=== PATIENT | female | born 1960 | race Caucasian/White ===

== ENCOUNTER 2017-05-08 11:32 | Inpatient (IN) | payer OTHER, MEDICARE ==
[~2017-05-08] VITALS: Ht 165.1 cm; Wt 126.1 kg
[~2017-05-08 11:32] MED LIST: ABILIFY 2MG2 MG PO; ALBUTEROL 3 ML3 ML INH; ASPIR 8181 MG PO; DIOVAN HCT 25 M1 TAB PO; ENBREL50 MG/ML; ESCITALOPRAM20 MG PO; FUROSEMIDE20 MG PO; HYDROXYCHLOROQ200 M1 PO; LEVAQUIN 500MG500 MG PO; LEVAQUIN500 M1 PO; MEDROL4 M2 PO; MULTI VITAMINS1 TAB PO; NASONEX0.05 MG/Ac NAS; PANTOPRAZOLE SO20 MG PO; PROMETHAZINE-C118 ML PO; PROVENTIL0.09 MG/A1 PO; ROPINIROLE HYDRO1 MG PO; SPIRIVA 18 MCG18 MCG INH; SYMBICORT 160/41 PUF INH
--- NOTE | 2017-05-08 12:51 | RADIOLOGY REPORT ---
EXAMINATION: XR CHEST CLINICAL INFORMATION: Shortness of breath. COMPARISON: Chest x-ray dated 04/26/2017. TECHNIQUE: Frontal and lateral views of the chest were obtained. FINDINGS: The lungs are clear bilaterally. There is no evidence of pleural effusion or pneumothorax. The central pulmonary vasculature is within normal limits. The cardiomediastinal silhouette is not enlarged. The overlying soft tissues are unremarkable. Small anterior osteophytes and endplate changes are present at multiple levels in the thoracic spine. IMPRESSION: No acute cardiopulmonary findings.
--- NOTE | 2017-05-08 13:08 | ED DYSPNEA/ASTHMA COMPLAINT ---
See Addendum History of Present Illness General Chief Complaint: General Adult Stated Complaint: SENT BY KIERA FOR EVAL, POOR LUNG SOUNDS Source: patient, old records Exam Limitations: no limitations Vital Signs & Intake/Output Vital Signs & Intake/Output Vital Signs Date Time Temp Pulse Resp B/P B/P Pulse O2 O2 Flow FiO2 Mean Ox Delivery Rate 05/10 1630 91 Nasal 3.0L Cannula 05/10 1445 98.2 98 20 120/70 95 05/10 1000 79 20 150/88 05/10 0815 93 Nasal 2.0L Cannula 05/10 0800 95 Nasal 2.0L Cannula 05/10 0650 96.8 79 20 150/88 95 Nasal 2.0L Cannula 05/10 0007 75 95 05/10 0000 95 Nasal 2.0L Cannula 05/09 2240 73 94 05/09 2208 98.1 93 20 188/84 95 Nasal Cannula 05/09 2048 94 Nasal 2.0L Cannula ED Intake and Output 05/10 0000 05/09 1200 Intake Total 510 240 Output Total Balance 510 240 Intake, Oral 510 240 Allergies Coded Allergies: doxycycline (Intermediate, HIVES/SOB 04/27/17) morphine (Intermediate, RASH, HIVES 04/27/17) amoxicillin (HIVES, WHEEZING 04/27/17) acetaminophen (From VICODIN) (Intermediate, NAUSEA 04/27/17) hydrocodone (From VICODIN) (Intermediate, NAUSEA 04/27/17) Triage Note: PT SENT TO ED BY DR QURESHI FOR "POOR LUNG SOUNDS". PT IS O2 DEPENDANT AT 2L NC, SATS 96%. PT IN NO OBVIOUS RESP DISTRESS. PT WAS AT DR QURESHI'S FOR F/U APPT FROM LAST VISIT TO ED ON 04/26. Triage Nurses Notes Reviewed? yes Onset: Gradual Duration: week(s): (1-2), constant, continues in ED, getting worse Timing: recent history Severity: mild, moderate Activities at Onset: activity Prior Episodes/Possible Cause: frequent episodes Modifying Factors: Improves With: rest. Worsens With: movement. Associated Symptoms: cough, chest pain, lightheadedness, wheezing, weakness LMP (ages 10-50): unknown : No Patient currently breastfeeds: No HPI: 56-year-old female past medical history of COPD and sleep apnea presents for evaluation of shortness of breath cough and wheezing. Patient states that her symptoms were going on for the past 1-2 weeks. She was seen in the emergency department when symptoms first started. She was given a prescription for prednisone and Levaquin which she has been taking. She was discharged home with instructions to follow-up with her rigging slinger which she did today. While in the office patient was found to have increased oxygen use and significant wheezing and rhonchi she was referred to the emergency department by Dr. Qureshi. Patient reports a cough productive of yellow sputum that is worse at night causing difficulty sleeping. She also reports associated shortness of breath. She states that her chest hurts when she coughs. No hemoptysis lower extremity edema. She does report intermittent fevers. No nausea vomiting diarrhea sweats chills. (Dustin CORRALES,Omid) Reconcile Medications Albuterol Sulfate 2.5 MG/3 ML (0.083 %) VIAL.NEB 1 Vial INH/NYA Q4P PRN SOB ( Reported) Albuterol Sulfate (Proair Hfa) 90 MCG HFA.AER.AD 2 PUF INH Q4-6 PRN PRN SOB ( Reported) Aspirin (Aspirin*) 81 MG TAB.CHEW 1 TAB PO DAILY HEART HEALTH (Reported) Budesonide/Formoterol Fumarate (Symbicort 160-4.5 Mcg Inhaler) 160 MCG-4.5 MCG/ ACTUATION HFA.AER.AD ASTHMA (Reported) Cyclosporine (Restasis) 0.05 % DROPERETTE 1 GTT OPH BID DRY EYES (Reported) Escitalopram Oxalate 20 MG TABLET 1 TAB PO DAILY DEPRESSION (Reported) Etanercept (Enbrel) 50 MG/ML (0.98 ML) SYRINGE 50 SC QW . (Reported) Furosemide 20 MG TABLET 1 TAB PO DAILY FLUID (Reported) Montelukast Sodium 10 MG TABLET 1 TAB PO DAILY ALLERGIES (Reported) Multivitamin (Daily Multiple Vitamin) 1 EACH TABLET 1 TAB PO DAILY SUPPLEMENT (Reported) Pantoprazole Sodium 40 MG TABLET.DR 1 TAB PO DAILY ANTACID (Reported) Tiotropium [place] (Spiriva Respimat) 2.5 MCG/ACTUATION MIST.INHAL 1 CAP INH DAILY ASTHMA (Reported) Valsartan/Hydrochlorothiazide (Diovan Hct 80-12.5 MG Tablet) 80 MG-12.5 MG TABLET 1 TAB PO DAILY HTN (Reported) (John HAYNESDara) Past History Travel History Traveled to [place] past 21 day No Medical History Any Pertinent Medical History? see below for history Neurological: NONE EENT: allergies, DRY EYES Cardiovascular: hypertension Respiratory: emphysema, SLEEP APNEA 02 DEPENDANT Gastrointestinal: GERD Hepatic: NONE Renal: NONE Musculoskeletal: rheumatoid arthritis Psychiatric: NONE Endocrine: NONE History of MRSA: No History of VRE: No History of CDIFF: No Surgical History Surgical History: non-contributory Psychosocial History Who do you live with Spouse Services at Home None What is your primary language Bangladeshi Tobacco Use: Quit >30 days ago ETOH Use: denies use Illicit Drug Use: denies illicit drug use Family History Family History, If Any: grandmother (Angina). MOTHER (Aortic Valve replacement). FATHER (Hypertension). BROTHER (CHF). Hx Contributory? No (Omid Keller) Review of Systems Review of Systems Constitutional: Reports: no symptoms. EENTM: Reports: no symptoms. Respiratory: Reports: see HPI, cough, short of breath, sputum production, wheezing. Cardiovascular: Reports: see HPI, chest pain. GI: Reports: no symptoms. Genitourinary: Reports: no symptoms. Musculoskeletal: Reports: no symptoms. Skin: Reports: no symptoms. Neurological/Psychological: Reports: no symptoms. Hematologic/Endocrine: Reports: no symptoms. Immunologic/Allergic: Reports: no symptoms. All Other Systems: Reviewed and Negative (Omid Keller) Physical Exam Physical Exam General Appearance: well developed/nourished, no apparent distress, alert, awake , obese Head: atraumatic, normal appearance Eyes: Bilateral: normal appearance, PERRL, EOMI. Ears, Nose, Throat: normal pharynx, normal ENT inspection, hearing grossly normal, nasal congestion, moist mucus membranes Neck: normal inspection, supple, full range of motion, no jvd Respiratory: chest non-tender, no respiratory distress, rhonchi (diffuse ), wheezing (diffuse ) Cardiovascular: normal peripheral pulses, tachycardia Peripheral Pulses: 2+ radial (R), 2+ radial (L) Gastrointestinal: normal bowel sounds, soft, non-tender, no organomegaly Extremities: normal inspection, normal range of motion, no edema Neurologic/Psych: no motor/sensory deficits, awake, alert, oriented x 3, normal gait Skin: intact, normal color, warm/dry Lymphatic: no anterior cervical eva Core Measures ACS in differential dx? No CVA/TIA Diagnosis No Sepsis Present: No Sepsis Focused Exam Completed? No (Omid Keller) Progress Differential Diagnosis: asthma, AMI, bronchitis, CHF, COPD, musculoskeletal pain , pulmonary embolism, pneumonia, unstable angina Plan of Care: Orders Procedure Date/time Status PT Evaluate & Treat 05/10 UNK Active Anticipated Discharge 05/10 UNK Active NUTRITIONAL CONSULT 05/10 UNK Active OXYGEN SETUP CHG 05/09 UNK Complete AEROSOL CHG 05/09 UNK Complete OXYGEN 05/09 UNK Complete OXYGEN TRANSPORT 05/09 UNK Complete PHARMACY COMMUNICATION FORM 05/09 UNK Active MISSING MEDICATION FORM 05/09 UNK Active Current Medications Sig/Jarrell Start time Last Medication Dose Stop Time Status Admin Methylprednisolone 40 MG Q12 05/10 2200 AC (Solumedrol) Montelukast Sodium 10 MG DAILY 05/10 1000 AC 05/10 (Singulair) 0959 Hydrochlorothiazide 12.5 MG DAILY 05/09 2245 AC 05/10 (Hydrodiuril) 1000 Albuterol Sulfate 3 ML EVERY 4 HRS/AWAKE 05/09 1600 AC 05/10 (Proventil) 1628 Azithromycin 250 MG DAILY 05/09 1000 AC 05/10 (Zithromax) 0959 Enoxaparin Sodium 40 MG DAILY 05/09 1000 AC 05/10 (Lovenox) 0959 Furosemide 20 MG DAILY 05/09 1000 AC 05/10 (Lasix) 1000 Losartan Potassium 25 MG DAILY 05/09 1000 AC 05/10 (Cozaar) 1000 Albuterol Sulfate 3 ML Q4P PRN 05/08 1730 AC 05/09 (Proventil) 1553 Albuterol Sulfate 2 PUF Q4-6 PRN PRN 05/08 1730 AC (Ventolin) Budesonide/ 2 PUF DAILY 05/08 1723 AC 05/10 Formoterol Fumarate 1119 (Symbicort) Escitalopram Oxalate 20 MG DAILY 05/08 1722 AC 05/10 (Lexapro) 1000 Multivitamins 1 TAB DAILY 05/08 1722 AC 05/10 Therapeutic 0959 (Theragran-M Vitamins Tabs) Omeprazole 40 MG DAILY AC 05/08 1722 AC 05/10 (Prilosec) 0543 Tiotropium [place] 1 PUF DAILY 05/08 1722 AC 05/10 (Spiriva) 1120 Aspirin 81 MG DAILY 05/08 1721 AC 05/10 (Aspirin) 1000 Patient seen and evaluated. Patient is prescribed oxygen for use during exertion only. She reports that she has been needing to use her oxygen 24 7 for the past week or so. She was treated as an outpatient with oral antibiotics and steroids without any improvement. Her rigging slinger Dr. Qureshi referred her to the emergency department for possible admission. We'll check basic labs EKG chest x-ray and flu swab. Patient medicated with IV Solu-Medrol and DuoNeb. Chest x-ray is negative for pneumonia. All blood work is within normal limits including negative troponin and BNP and d-dimer. EKG is stable. Patient is requiring more oxygen than usual. She failed outpatient treatment with prednisone and Levaquin. Patient is prescribed oxygen for exertional use only. At rest patient desaturates to 91% on room air and becomes visibly short of breath. Patient will require IV steroids, DuoNeb's, pulmonology consult, IV antibiotics, oxygen management, medication adjustment and monitoring of vital signs. Case discussed with Dr. Lopez she agrees. Diagnostic Imaging: Viewed by Me: Radiology Read. Discussed w/RAD: Radiology Read. CXR Impression: PATIENT: KIRBY SHABAZZ PRESENT AGE: 56 PATIENT ACCOUNT NO: [id number] : 60 LOCATION: [facility] ORDERING PHYSICIAN: Basil CORRALES SERVICE DATE: 05/08/17 EXAM TYPE: RAD - XRY-CHEST XRAY, TWO VIEWS EXAMINATION: XR CHEST CLINICAL INFORMATION: Shortness of breath. COMPARISON: Chest x-ray dated 04/26/2017. TECHNIQUE: Frontal and lateral views of the chest were obtained. FINDINGS: The lungs are clear bilaterally. There is no evidence of pleural effusion or pneumothorax. The central pulmonary vasculature is within normal limits. The cardiomediastinal silhouette is not enlarged. The overlying soft tissues are unremarkable. Small anterior osteophytes and endplate changes are present at multiple levels in the thoracic spine. IMPRESSION: No acute cardiopulmonary findings. DICTATED BY: Bhavna Johnson MD DATE/TIME DICTATED:05/08/171246 HVAC SPECIALIST: MICKEY DATE/TIME TRANSCRIBED:05/08/171246 CONFIDENTIAL, DO NOT COPY WITHOUT APPROPRIATE AUTHORIZATION. Initial ED EKG: normal sinus rhythm, probable left atrial abn, consider lvh, probable inferior infarct old (Omid Keller) Departure Departure Disposition: STILL A PATIENT Condition: Stable Clinical Impression Primary Impression: COPD exacerbation Referrals: Marvin Welsh MD (PCP/Family) Departure Forms: Customer Survey General Discharge Information Admission Note Documentation of Exam: Documentation of any treatments & extenuating circumstances including Concerns Regarding Discharge (functional status, medication knowledge or non-compliance, living conditions, etc.) that warrant an admission rather than observation: [IV steroids, DuoNeb's, serial labs, pulmonology consult, oxygen setup, medication adjustment, monitoring of vital signs] (Omid Keller) Departure Time of Disposition: 1530 Admission Note Spoke With: Rosa HAYNES,Johnathan PA/SCIENTIFIC AIDE Co-Sign Statement Statement: ED Attending supervision documentation- [X] I saw and evaluated the patient. I have also reviewed all the pertinent lab results and diagnostic results. I agree with the findings and the plan of care as documented in the PA's/SCIENTIFIC AIDE's documentation. [X] I have reviewed the ED Record and agree with the PA's/SCIENTIFIC AIDE's documentation. [] Additions or exceptions (if any) to the PAs/SCIENTIFIC AIDE's note and plan are summarized below: [] (John HAYNES,Dara) Critical Care Note Critical Care Note Critical Care Time: non-applicable (Omid Keller)
[2017-05-08 13:15] LABS: ABSOLUTE BASOPHIL COUNT 0 /CUMM (0.0-0.2); ABSOLUTE EOSINOPHIL COUNT 0.2 /CUMM (0.0-0.7); ABSOLUTE GRANULOCYTE CT 11.7 /CUMM (1.4-6.5); ABSOLUTE LYMPH COUNT 1.9 /CUMM (1.2-3.4); ABSOLUTE MONOCYTE COUNT 1.3 /CUMM (0.10-0.60); BASOPHIL % 0.3 % (0.0-2.0); EOSINOPHIL % 1.6 % (0-5); GRANULOCYTE % 76.5 % (42.2-75.2); HEMATOCRIT 44.4 % (37-47); MEAN CORPUSCULAR HGB 28.8 PG (27.0-31.0); MEAN CORPUSCULAR VOLUME 87.2 FL (81.0-99.0); MEAN PLATELET VOLUME 8.5 FL (7.4-10.4); PLATELET COUNT 365 /CUMM (130-400); RBC DISTRIBUTION WIDTH 14.2 % (11.5-14.5); WHITE BLOOD CELL COUNT 15.3 /CUMM (4.8-10.8)
[2017-05-08 13:27] LABS: PT 11.2 SEC (9.4-12.5); PTT 30 SEC (25-37)
[2017-05-08] MEDS ORDERED: PROAIR HFA8.5 GM INH (15:27)
[2017-05-08] MEDS ORDERED: ALBUTEROL2.5 MG/3 M INH/SOL (15:27)
[2017-05-08] MEDS ORDERED: MONTELUKAST SOD10 M1 PO (15:28)
[2017-05-08] MEDS ORDERED: FUROSEMIDE20 M1 PO (15:28)
[2017-05-08] MEDS ORDERED: ASPIRIN81 M4 PO (15:29)
[2017-05-08] MEDS ORDERED: SYMBICORT 16010.2 GM INH (15:29)
[2017-05-08] MEDS ORDERED: ENBREL50 MG/1 ML SC (15:30)
[2017-05-08] MEDS ORDERED: ESCITALOPRAM OX20 MG PO (15:30)
[2017-05-08] MEDS ORDERED: RESTASIS1 EACH OPH (15:30)
[2017-05-08] MEDS ORDERED: SPIRIVA RESPIMAT4 GM INH (15:32)
[2017-05-08] MEDS ORDERED: PANTOPRAZOLE SO40 M1 PO (15:34)
[2017-05-08] MEDS ORDERED: DIOVAN HCT 1601 EAC1 PO (15:36)
[2017-05-08] MEDS ORDERED: DAILY MULTIPLE1 EACH PO (15:36)
--- NOTE | 2017-05-08 15:40 | History & Physical ---
Freida Bay 05/08/17 1540: General Information and HPI MD Statement: I have seen and personally examined OCTAVIOVenitaGISELLEKIRBY Hollis and documented this H&P. The patient is a 56 year old F who presented with a patient stated chief complaint of []. Source of Information: patient Exam Limitations: no limitations History of Present Illness: Ms. Castellano is a 56-year-old female past medical history of COPD on home O2, sleep apnea, and rheumatoid arthritis on weekly Enbrel injection presented to ER after being sent in by Dr. Lainez during outpatient office visit for evaluation of shortness of breath cough and wheezing. Patient stated that her symptoms of discomfort, shortness of breath, feverish feelings started on 04/23/2017, and she presented to ER on 04/26, and received a prescription for prednisone and Levaquin which she has been taking prior to this admission, however, without significant improvement of symptoms. She was scheduled to see Dr. Lainez today and was found to have increased oxygen needs and significant wheezing/rhonchi. Patient was then sent to ER. Of note, patient reported productive cough with yellowish sputum that was worse at night and causing difficulty sleeping, and admitted that she had recent sick contact from her who was coughing as well. She also reported ongoing SOB since start of her symptoms, and required all day home O2 for the past 2 weeks. Patient denied any hemoptysis, lower extremity edema, nausea, vomiting, diarrhea, night sweats, or chills. Allergies/Medications Allergies: Coded Allergies: doxycycline (Intermediate, HIVES/SOB 04/27/17) morphine (Intermediate, RASH, HIVES 04/27/17) amoxicillin (HIVES, WHEEZING 04/27/17) acetaminophen (From VICODIN) (Intermediate, NAUSEA 04/27/17) hydrocodone (From VICODIN) (Intermediate, NAUSEA 04/27/17) Home Med list Albuterol Sulfate 2.5 MG/3 ML (0.083 %) VIAL.NEB 1 Vial INH/NYA Q4P PRN SOB ( Reported) Albuterol Sulfate (Proair Hfa) 90 MCG HFA.AER.AD 2 PUF INH Q4-6 PRN PRN SOB ( Reported) Aspirin (Aspirin*) 81 MG TAB.CHEW 1 TAB PO DAILY HEART HEALTH (Reported) Budesonide/Formoterol Fumarate (Symbicort 160-4.5 Mcg Inhaler) 160 MCG-4.5 MCG/ ACTUATION HFA.AER.AD ASTHMA (Reported) Cyclosporine (Restasis) 0.05 % DROPERETTE 1 GTT OPH BID DRY EYES (Reported) Escitalopram Oxalate 20 MG TABLET 1 TAB PO DAILY DEPRESSION (Reported) Etanercept (Enbrel) 50 MG/ML (0.98 ML) SYRINGE 50 SC QW . (Reported) Furosemide 20 MG TABLET 1 TAB PO DAILY FLUID (Reported) Montelukast Sodium 10 MG TABLET 1 TAB PO DAILY ALLERGIES (Reported) Multivitamin (Daily Multiple Vitamin) 1 EACH TABLET 1 TAB PO DAILY SUPPLEMENT (Reported) Pantoprazole Sodium 40 MG TABLET.DR 1 TAB PO DAILY ANTACID (Reported) Tiotropium [place] (Spiriva Respimat) 2.5 MCG/ACTUATION MIST.INHAL 1 CAP INH DAILY ASTHMA (Reported) Valsartan/Hydrochlorothiazide (Diovan Hct 80-12.5 MG Tablet) 80 MG-12.5 MG TABLET 1 TAB PO DAILY HTN (Reported) Past History Travel History Traveled to [place] past 21 day No Medical History Neurological: NONE EENT: allergies, DRY EYES Cardiovascular: hypertension Respiratory: emphysema, SLEEP APNEA 02 DEPENDANT Gastrointestinal: GERD Hepatic: NONE Renal: NONE Musculoskeletal: rheumatoid arthritis Psychiatric: NONE Endocrine: NONE History of MRSA: No History of VRE: No History of CDIFF: No Surgical History Surgical History: non-contributory, cholecystectomy Past Family/Social History Family History Relations & Conditions if any grandmother (Angina). MOTHER (Aortic Valve replacement). FATHER (Hypertension). BROTHER (CHF). Psychosocial History Services at Home: None Smoking Status: Never Smoked ETOH Use: denies use Illicit Drug Use: denies illicit drug use Review of Systems Review of Systems Constitutional: Reports: see HPI. Exam & Diagnostic Data Last 24 Hrs of Vital Signs/I&O Vital Signs Date Time Temp Pulse Resp B/P B/P Pulse O2 O2 Flow FiO2 Mean Ox Delivery Rate 05/08 1643 89 19 111/72 98 Room Air 05/08 1433 98.4 95 20 108/58 97 Nasal 2.0L Cannula 05/08 1424 97 Nasal 2.0L Cannula 05/08 1336 96 Nasal 2.0L Cannula 05/08 1148 96.8 110 20 113/79 96 Nasal 2.0L Cannula Intake & Output 05/08 1600 05/08 0800 05/08 0000 Intake Total 0 Output Total Balance 0 Intake, Oral 0 Patient 126.099 kg Weight Weight Reported by Patient Measurement Method Physical Exam General Appearance Alert, Oriented X3, Cooperative, No Acute Distress Skin No Breakdown, No Significant Lesion Skin Temp/Moisture Exam: Warm/Dry Sepsis Skin Exam (color): Normal for Ethnicity HEENT Atraumatic, PERRLA, Mucous Membr. moist/pink Neck Supple, No JVD Cardiovascular Regular Rate Lungs Normal Air Movement, Bilateral rhonchi Abdomen Normal Bowel Sounds, Soft, No Tenderness Neurological Normal Speech, Strength at 5/5 X4 Ext Extremities No Edema, Normal Pulses, No Tenderness/Swelling Last 24 Hrs of Labs/Ivan: Laboratory Tests 05/08/17 1257: Anion Gap 11, Estimated GFR > 60, BUN/Creatinine Ratio 12.2, Glucose 123 H, Calcium 9.5, Total Bilirubin 0.8, AST 144 H, ALT 142 H, Alkaline Phosphatase 129 H, Troponin I < 0.01, Jke-B-Bbcrftzeehr Pept 19.5, Total Protein 7.1, Albumin 4.0, Globulin 3.1, Albumin/Globulin Ratio 1.3, PT 11.2, INR 1.07, APTT 30, D-Dimer High Sensitivty < 200, CBC w Diff NO MAN DIFF REQ, RBC 5.10, MCV 87.2, MCH 28.8, MCHC 33.0, RDW 14.2, MPV 8.5, Gran % 76.5 H, Lymphocytes % 12.8 L, Monocytes % 8.8, Eosinophils % 1.6, Basophils % 0.3, Absolute Granulocytes 11.7 H, Absolute Lymphocytes 1.9, Absolute Monocytes 1.3 H, Absolute Eosinophils 0.2, Absolute Basophils 0, Hepatitis A IgM Ab Pending, Hep Bs Antigen Pending, Hep B Core IgM Ab Conf Pending, Hepatitis C Antibody Pending Microbiology 05/08 1258 BLOOD: Blood Culture - RECD 05/08 1257 BLOOD: Blood Culture - RECD 05/08 1208 NASOPHARYN: Influenza Virus A & B Rapid Smear - COMP Diagnostic Data EKG Results Normal Sinus Rhythm without ST-T abnormalities Assessment/Plan Assessment: Ms. Castellano is a 56-year-old female past medical history of COPD on home O2, sleep apnea, and rheumatoid arthritis on weekly Enbrel injection presented to ER after being sent in by Dr. Lainez during outpatient office visit for evaluation of shortness of breath cough and wheezing. Patient stated that her symptoms of discomfort, shortness of breath, feverish feelings started on 04/23/2017, and she presented to ER on 04/26, and received a prescription for prednisone and Levaquin which she has been taking prior to this admission, however, without significant improvement of symptoms. She was scheduled to see Dr. Lainez today and was found to have increased oxygen needs and significant wheezing/rhonchi. Patient was then sent to ER. Of note, patient reported productive cough with yellowish sputum that was worse at night and causing difficulty sleeping, and admitted that she had recent sick contact from her who was coughing as well. She also reported ongoing SOB since start of her symptoms, and required all day home O2 for the past 2 weeks. Patient denied any hemoptysis, lower extremity edema, nausea, vomiting, diarrhea, night sweats, or chills. Upon admission, Afebrile (recent use of steroids) on 2LNC satting 97%. WBC 15.3 with mild left shift likely 2/2 recent steroid use. AST/ALT/ALKP 144/142/129. No acute findings on CXR. Patient's current clinical picture resembled COPD exacerbation failing outpatient treatment. Patient's afebrile wth leukocytosis without acute CXR findings would not warrant pneumonia. Patient denied binge/daily alcohol use and had cholecystectomy remotely in . Her transaminitis was likely from medication use (patient denied MTX use recently) or other unclear etiology pending further evaluation. Patient was admitted to [facility] for the following managements #COPD Exacerbation #Transaminitis #Rhematoid arthritis - Admit to [facility] - TRC/Neb/Ventolin/Symbicort/Spiriva/Singulair. - Started IV Solumedrol 40mg Q8 + Zithromax 250mg x 4 days (received zithromax 500mg x 1 in ER) - RUQ U/S to rule out any acute hepatobiliary issue - Continued home meds including Aspirin 81, Lexapro, Omeprazole, Lasix 20mg, and Cozaar 25mg for her chronic medical conditions. - Pending pulm consult by Dr. Lainez in the AM - Pending sputum/blood cultures DVT PPX Lovenox+ALPS Heart Healthy Diet Full Code As Ranked By This Provider Problem List: 1. Emphysema of lung Core Measures/Misc (12/16) Acute Coronary Syndrome ACS Diagnosis: No Congestive Heart Failure Congestive Heart Failure Diagnosis No Cerebrovascular Accident CVA/TIA Diagnosis: No VTE (View Protocol) VTE Risk Factors Age>40 No Mechanical VTE Prophylaxis d/t N/A MechProphylax Ordered No VTE Pharm Prophylaxis d/t NA PharmProphylax ordered Sepsis (View protocol) Sepsis Present: No Johnathan Lee MD 05/08/17 1750: Attending MD Review Statement Attending Statement Attending MD Statement: examined this patient, discuss w/resident/PA/COMPUTER MECHANIC, agreed w/resident/PA/COMPUTER MECHANIC, reviewed EMR data (avail) Attending Assessment/Plan: Patient seen and examined in emergency room. Patient is a 56-year-old female past medical history of COPD on home O2, sleep apnea, presented to ER after being sent in by Dr. Lainez during outpatient office visit for evaluation of shortness of breath cough and wheezing. Patient stated that her symptoms of discomfort, shortness of breath, feverish feelings started on 04/23/2017, and she presented to ER on 04/26, and received a prescription for prednisone and Levaquin which she has just finished yesterday . Despite treatment with antibiotic and prednisone she has not felt better and remained short of breath especially on ambulation. She denies any recent fever chills or chest pains. She has scant production of sputum. She was found to be afebrile with initial sinus tachycardia and stable blood pressure. She required 2 L of oxygen with 97% saturation. Her WBC count was elevated to 15.3 with mild left shift. Her AST and ALT are elevated to 144 and 142 respectively. In addition alk phosphatase is 129. Chest x-ray did not show any acute findings. Patient being admitted for COPD exacerbation. We'll begin treatment and IV Solu -Medrol and azithromycin. Will obtain pulmonary consult Dr. Lainez in the morning. Continue oxygen to maintain oxygenation above 92%. TRC nebs as a treatment will be offered. Plan is to continue other home medications. Juarez Taylor 05/08/17 1800: Resident Review Statement Resident Statement: examined this patient, discussed with architectural intern, agreed with architectural intern, discussed with family, reviewed EMR data (avail), reviewed images, amended to note Other Findings: 56-year-old woman with past medical history of COPD on 2 L home oxygen when exerting, KRIS on CPAP, rheumatoid arthritis presented to [facility] ED after being sent by Dr. Lainez from his office for shortness of breath and compromise breathing status. The patient was seen couple weeks ago in the ED as well for similar complaints and at that time was prescribed prednisone and Levaquin. Following no improvement with prescribed treatment, prompted her to visit Dr. Lainez. 1. COPD exacerbation: Possible etiology for exacerbation-recent upper respiratory syndrome. Nonsmoker, no exposure to secondhand smoke. Admit to general medicine. IV Solu-Medrol. TRC. Inhaled beta agonist scheduled and when necessary. Inhaled ipratropium and steroids. Pulmonary consult. No fevers, chest x-ray negative for any infiltrate. High white count noted, likely secondary to de-margination of peripheral neutrophils, secondary to steroid use. May use azithromycin for anti-inflammatory effect. 2. Transaminitis. Elevated AST, ALT and alkaline phosphatase. Normal bili, no obstruction. Patient status post cholecystectomy. No alcohol use or Tylenol overuse. Could be secondary to rarely reported hepatotoxic side effect of Embrel. Check hepatitis panel. Check LFTs in a.m. Plan for imaging inpatient or outpatient, per primary team. Outpatient follow-up with partnership development manager. Full code. Lovenox for DVT prophylaxis. Heart Healthy Diet
[2017-05-08 16:15] VITALS: BP 127/60
[2017-05-08] MEDS ORDERED: DIOVAN HCT 80-1 EACH PO (17:20)
--- NOTE | 2017-05-08 17:55 | Admission Certification ---
Admission Certification Certification Statement - As attending physician, I certify that at the time of - admission, based on clinical presentation, severity of - symptoms, need for further diagnostic testing and - therapeutic interventions, and risk of adverse outcomes - without in-hospital treatment, in my clinical assessment, - this patient requires an acute hospital stay for a minimum - of two nights or longer. I have also considered psychsocial - factors such as support system, advanced age, financial - issues, cognitive issues, and failed out-patient treatments, - past re-admission history, safety of patient, and lack of - compliance as applicable. Specific rationale supporting this admission is: COPD exacerbation
--- NOTE | 2017-05-08 19:17 | ULTRASOUND REPORT ---
EXAMINATION: US ABDOMEN LIMITED CLINICAL INFORMATION: Transaminitis. History of prior cholecystectomy.. COMPARISON: None TECHNIQUE: Real-time imaging of the right upper quadrant abdominal viscera. FINDINGS: PANCREAS: Not well seen secondary to bowel gas. LIVER: Limited visualization. There is diffuse increased liver parenchymal echogenicity, consistent with hepatic steatosis. The liver is normal in size and contour. No biliary ductal dilatation. GALLBLADDER: Status post cholecystectomy. COMMON BILE DUCT: Normal in caliber measuring 0.6 cm in diameter. RIGHT KIDNEY: Normal. No hydronephrosis. No renal calculi or focal parenchymal lesions. The kidney measures 11.1 cm in maximum dimension. FREE FLUID: None. IMPRESSION: Visualization limited due to bowel gas. The pancreas is not evaluated. Increased hepatic echogenicity suggests hepatic steatosis.
[2017-05-09 06:52] LABS: ABSOLUTE BASOPHIL COUNT 0.1 /CUMM (0.0-0.2); ABSOLUTE EOSINOPHIL COUNT 0 /CUMM (0.0-0.7); ABSOLUTE LYMPH COUNT 1.2 /CUMM (1.2-3.4); ABSOLUTE MONOCYTE COUNT 0.2 /CUMM (0.10-0.60); BASOPHIL % 0.4 % (0.0-2.0); EOSINOPHIL % 0 % (0-5); HEMATOCRIT 40.9 % (37-47); MEAN CORPUSCULAR HGB 29.2 PG (27.0-31.0); MEAN CORPUSCULAR HGB CONC 33.3 G/DL (33.0-37.0); MEAN CORPUSCULAR VOLUME 87.6 FL (81.0-99.0); MEAN PLATELET VOLUME 8.7 FL (7.4-10.4); PLATELET COUNT 329 /CUMM (130-400); RBC DISTRIBUTION WIDTH 14.1 % (11.5-14.5); RED BLOOD CELL CT 4.67 /CUMM (4.20-5.40); WHITE BLOOD CELL COUNT 14.3 /CUMM (4.8-10.8)
[2017-05-09 06:59] LABS: GRANULOCYTE % 90.4 % (42.2-75.2)
[2017-05-09 07:57] VITALS: BP 127/65
[2017-05-09 08:02] VITALS: BP 127/65
--- NOTE | 2017-05-09 09:21 | PN- Housestaff ---
PhuFreida 05/09/1714: Subjective Follow-up For: #COPD Exacerbation #Transaminitis #Rhematoid arthritis Subjective: No overnight event. Patient felt improved after treatment overnight. acknowledged the result from Abdomen U/S, and said that she was never told about her liver enzymes by her PCP or hand screen printer Dr. Trang Richmond. Review of Systems Constitutional: Reports: see HPI. Objective Last 24 Hrs of Vital Signs/I&O Vital Signs Date Time Temp Pulse Resp B/P B/P Pulse O2 O2 Flow FiO2 Mean Ox Delivery Rate 05/09 0913 86 127/65 05/09 0802 97.6 86 20 127/65 95 Nasal 2.0L Cannula 05/09 0801 97.6 86 20 127/65 95 Nasal 2.0L Cannula 05/09 0757 97.6 86 20 127/65 95 Nasal 2.0L Cannula 05/09 0634 97.5 87 20 122/78 95 Nasal 2.0L Cannula 05/08 2222 98.6 86 20 96 Nasal 2.0L Cannula 05/08 1913 Nasal 2.0L Cannula 05/08 1911 91 19 119/73 98 Room Air 05/08 1643 89 19 111/72 98 Room Air 05/08 1433 98.4 95 20 108/58 97 Nasal 2.0L Cannula 05/08 1424 97 Nasal 2.0L Cannula 05/08 1336 96 Nasal 2.0L Cannula 05/08 1148 96.8 110 20 113/79 96 Nasal 2.0L Cannula Intake & Output 05/09 1600 08 0800 05/09 0000 Intake Total 240 400 Output Total Balance 240 400 Intake, Oral 240 400 Physical Exam General Appearance: Alert, Oriented X3, Cooperative, No Acute Distress Cardiovascular: Regular Rate Lungs: Normal Air Movement, bilateral rhonchi however no obvious wheezing Abdomen: Soft, No Tenderness Neurological: Normal Speech Extremities: No Edema, Normal Pulses Current Medications: Current Medications Sig/Jarrell Start time Last Medication Dose Route Stop Time Status Admin Albuterol Sulfate 3 ML Q4P PRN 05/08 1730 AC INH Albuterol Sulfate 2 PUF Q4-6 PRN PRN 05/08 1730 AC INH Albuterol Sulfate 3 ML ONCE ONE 05/08 1330 DC 05/08 INH 05/08 1331 1336 Aspirin 81 MG DAILY 05/08 1721 AC 05/09 PO 0909 Azithromycin 250 MG DAILY 05/09 1000 AC 05/09 PO 0910 Azithromycin 0 .STK-MED ONE 05/08 1655 DC PO Azithromycin 500 MG ONCE ONE 05/08 1615 DC / PO 05/08 1616 1700 Budesonide/ 2 PUF DAILY 05/08 1723 AC 05/09 Formoterol Fumarate INH 0910 Enoxaparin Sodium 40 MG DAILY 05/09 1000 AC 05/09 SC 0910 Escitalopram Oxalate 20 MG DAILY 05/08 1722 AC 05/09 PO 0910 Furosemide 20 MG DAILY 05/09 1000 AC 05/09 PO 0912 Furosemide 0 .STK-MED ONE 05/09 0916 DC PO Ipratropium [place] 2.5 ML ONCE ONE 05/08 1330 DC 05/08 INH 05/08 1331 1336 Losartan Potassium 25 MG DAILY 05/09 1000 AC 05/09 PO 0913 Methylprednisolone 0 .STK-MED ONE 05/09 0651 DC .ROUTE Methylprednisolone 0 .STK-MED ONE 05/08 2202 DC .ROUTE Methylprednisolone 40 MG Q8 05/08 2200 AC 05/09 IV 05/12 1401 0654 Methylprednisolone 0 .STK-MED ONE 05/08 1342 DC .ROUTE Methylprednisolone 125 MG ONCE ONE 05/08 1330 DC 05/08 IV 05/08 1331 1345 Montelukast Sodium 10 MG AT BEDTIME 05/08 2200 AC PO Multivitamins 1 TAB DAILY 05/08 1722 AC 05/09 Therapeutic PO 0910 Omeprazole 40 MG DAILY AC 05/08 1722 AC 05/09 PO 0732 Tiotropium [place] 1 PUF DAILY 05/08 1722 AC 05/09 INH 0910 Last 24 Hrs of Lab/Ivan Results Last 24 Hrs of Labs/Mics: Laboratory Tests 05/09/17 0644: Anion Gap 9, Estimated GFR > 60, BUN/Creatinine Ratio 20.0, Total Bilirubin 0.4, Direct Bilirubin 0.3, AST 91 H, ALT 145 H, Alkaline Phosphatase 125, Total Protein 6.6, Albumin 3.6, CBC w Diff NO MAN DIFF REQ, RBC 4.67, MCV 87.6, MCH 29.2, MCHC 33.3, RDW 14.1, MPV 8.7, Gran % 90.4 H, Lymphocytes % 8.1 L, Monocytes % 1.1 L, Eosinophils % 0, Basophils % 0.4, Absolute Granulocytes 13.0 H, Absolute Lymphocytes 1.2, Absolute Monocytes 0.2, Absolute Eosinophils 0, Absolute Basophils 0.1 05/08/17 1257: Anion Gap 11, Estimated GFR > 60, BUN/Creatinine Ratio 12.2, Glucose 123 H, Calcium 9.5, Total Bilirubin 0.8, AST 144 H, ALT 142 H, Alkaline Phosphatase 129 H, Troponin I < 0.01, Utt-D-Lqbvndjijed Pept 19.5, Total Protein 7.1, Albumin 4.0, Globulin 3.1, Albumin/Globulin Ratio 1.3, PT 11.2, INR 1.07, APTT 30, D-Dimer High Sensitivty < 200, CBC w Diff NO MAN DIFF REQ, RBC 5.10, MCV 87.2, MCH 28.8, MCHC 33.0, RDW 14.2, MPV 8.5, Gran % 76.5 H, Lymphocytes % 12.8 L, Monocytes % 8.8, Eosinophils % 1.6, Basophils % 0.3, Absolute Granulocytes 11.7 H, Absolute Lymphocytes 1.9, Absolute Monocytes 1.3 H, Absolute Eosinophils 0.2, Absolute Basophils 0, Hepatitis A IgM Ab Pending, Hep Bs Antigen Pending, Hep B Core IgM Ab Conf Pending, Hepatitis C Antibody Pending Microbiology 05/08 1258 BLOOD: Blood Culture - RECD 05/08 1257 BLOOD: Blood Culture - RECD 05/08 1208 NASOPHARYN: Influenza Virus A & B Rapid Smear - COMP Assessment/Plan Assessment: Ms. Castellano is a 56-year-old female past medical history of COPD on home O2, sleep apnea, and rheumatoid arthritis on weekly Enbrel injection presented to ER after being sent in by Dr. Lainez during outpatient office visit for evaluation of shortness of breath cough and wheezing. Patient stated that her symptoms of discomfort, shortness of breath, feverish feelings started on 04/23/2017, and she presented to ER on 04/26, and received a prescription for prednisone and Levaquin which she has been taking prior to this admission, however, without significant improvement of symptoms. She was scheduled to see Dr. Lainez today and was found to have increased oxygen needs and significant wheezing/rhonchi. Patient was then sent to ER. Of note, patient reported productive cough with yellowish sputum that was worse at night and causing difficulty sleeping, and admitted that she had recent sick contact from her who was coughing as well. She also reported ongoing SOB since start of her symptoms, and required all day home O2 for the past 2 weeks. Patient denied any hemoptysis, lower extremity edema, nausea, vomiting, diarrhea, night sweats, or chills. Upon admission, Afebrile (recent use of steroids) on 2LNC satting 97%. WBC 15.3 with mild left shift likely 2/2 recent steroid use. AST/ALT/ALKP 144/142/129. No acute findings on CXR. Patient's current clinical picture resembled COPD exacerbation failing outpatient treatment. Patient's afebrile wth leukocytosis without acute CXR findings would not warrant pneumonia. Patient denied binge/daily alcohol use and had cholecystectomy remotely in . Her transaminitis was likely from medication use (patient denied MTX use recently) or other unclear etiology pending further evaluation. Patient was admitted to [facility] for the following managements #COPD Exacerbation - TRC/Neb/Ventolin/Symbicort/Spiriva/Singulair. - Would continue IV Solumedrol 40mg q8 + Zithromax 250mg x 4 days (received zithromax 500mg x 1 in ER), currently day 2. - Start nocturnal CPAP @[id number] - Pending sputum/blood cultures #Transaminitis, AST/ALT/ALKP 144/142/129 -> 91/145/125 - RUQ U/S showed hepatic steatosis but no acute issue. - Patient's transaminitis was likely from medications until proven otherwise. - Patient had cholecystectomy from . - Would continue monitor. #Hx of Rhematoid arthritis, HTN - Continued home meds including Aspirin 81, Lexapro, Omeprazole, Lasix 20mg, and Cozaar 25mg for her chronic medical conditions. DVT PPX Lovenox+ALPS Heart Healthy Diet Full Code Problem List: 1. COPD exacerbation Pain Ratin Pain Location: NA Pain Goal: Remain pain free Pain Plan: see AP Tomorrow's Labs & Rationales: BEP/LFTs Jae Ragland 05/09/17 1358: Attending MD Review Statement Attending Statement Attending MD Statement: examined this patient, discuss w/resident/PA/REMANUFACTURING TECHNICIAN, agreed w/resident/PA/REMANUFACTURING TECHNICIAN, discussed with family, reviewed EMR data (avail), discussed with nursing, discussed with case mgmt, reviewed images, amended to note Attending Assessment/Plan: Patient seen/examined bedside. Patient with b/l wheezinf, use of accessory muscles, on oxygen supplementation is admitted for COPD exacerbation. Pulmoanry consulted and recommend iv steroids, cpap at night, bronchodilators, oxygen supplementation, resume home meds. gi/dvt prophylaxis full code.
[2017-05-09 11:28] VITALS: BP 139/62
--- NOTE | 2017-05-09 11:43 | Cons- Pulmonary ---
General Information and HPI Consulting Request Date of Consult: 05/09/17 Requested By: Dr. Lee Reason for Consult: COPD exacerbation History of Present Illness: 56F severe emphysema, arthritis and KRIS. Sent from office for dyspnea, wheezing. Compliance - 04/2017 Usage Days - 50% >4 hours - 50% AHI - 0.7 PAP - CPAP 13 cmH20 LDCT - stable 05/2016 Had Prevnar (13) 07/2016 Symbicort 2 puffs bid with rinsing of the mouth. Spiriva Respimat daily. Remains on 2-3L of O2, she desaturates to 89% with exertion. CT reviewed and stable, significant emphysema with stable tiny nodules. Pulmonary function testing 2013 revealed very severe COPD consistent with emphysema and reduction of DLCO with an FEV1 of 32% predicted. Her DLCO was severely reduced at 38%. CXR without acute findings. Found to have transaminitis. Cough with yellowish phlegm. Flu negative. No n/v/d/c. No cp, no chino. Allergies/Medications Allergies: Coded Allergies: doxycycline (Intermediate, HIVES/SOB 04/27/17) morphine (Intermediate, RASH, HIVES 04/27/17) amoxicillin (HIVES, WHEEZING 04/27/17) acetaminophen (From VICODIN) (Intermediate, NAUSEA 04/27/17) hydrocodone (From VICODIN) (Intermediate, NAUSEA 04/27/17) Home Med List: Albuterol Sulfate 2.5 MG/3 ML (0.083 %) VIAL.NEB 1 Vial INH/NYA Q4P PRN SOB ( Reported) Albuterol Sulfate (Proair Hfa) 90 MCG HFA.AER.AD 2 PUF INH Q4-6 PRN PRN SOB ( Reported) Aspirin (Aspirin*) 81 MG TAB.CHEW 1 TAB PO DAILY HEART HEALTH (Reported) Budesonide/Formoterol Fumarate (Symbicort 160-4.5 Mcg Inhaler) 160 MCG-4.5 MCG/ ACTUATION HFA.AER.AD ASTHMA (Reported) Cyclosporine (Restasis) 0.05 % DROPERETTE 1 GTT OPH BID DRY EYES (Reported) Escitalopram Oxalate 20 MG TABLET 1 TAB PO DAILY DEPRESSION (Reported) Etanercept (Enbrel) 50 MG/ML (0.98 ML) SYRINGE 50 SC QW . (Reported) Furosemide 20 MG TABLET 1 TAB PO DAILY FLUID (Reported) Montelukast Sodium 10 MG TABLET 1 TAB PO DAILY ALLERGIES (Reported) Multivitamin (Daily Multiple Vitamin) 1 EACH TABLET 1 TAB PO DAILY SUPPLEMENT (Reported) Pantoprazole Sodium 40 MG TABLET.DR 1 TAB PO DAILY ANTACID (Reported) Tiotropium [place] (Spiriva Respimat) 2.5 MCG/ACTUATION MIST.INHAL 1 CAP INH DAILY ASTHMA (Reported) Valsartan/Hydrochlorothiazide (Diovan Hct 80-12.5 MG Tablet) 80 MG-12.5 MG TABLET 1 TAB PO DAILY HTN (Reported) Current Medications: Current Medications Sig/Jarrell Start time Last Medication Dose Route Stop Time Status Admin Albuterol Sulfate 3 ML Q4P PRN 05/08 1730 AC INH Albuterol Sulfate 2 PUF Q4-6 PRN PRN 05/08 1730 AC INH Albuterol Sulfate 3 ML ONCE ONE 05/08 1330 DC 05/08 INH 05/08 1331 1336 Aspirin 81 MG DAILY 05/08 1721 AC 05/09 PO 0909 Azithromycin 250 MG DAILY 05/09 1000 AC 05/09 PO 0910 Azithromycin 0 .STK-MED ONE 05/08 1655 DC PO Azithromycin 500 MG ONCE ONE 05/08 1615 DC 05/08 PO 05/08 1616 1700 Budesonide/ 2 PUF DAILY 05/08 1723 AC 05/09 Formoterol Fumarate INH 0910 Enoxaparin Sodium 40 MG DAILY 05/09 1000 AC 05/09 SC 0910 Escitalopram Oxalate 20 MG DAILY 05/08 1722 AC 05/09 PO 0910 Furosemide 20 MG DAILY 05/09 1000 AC 05/09 PO 0912 Furosemide 0 .STK-MED ONE 05/09 0916 DC PO Ipratropium [place] 2.5 ML ONCE ONE 05/08 1330 DC 05/08 INH 05/08 1331 1336 Losartan Potassium 25 MG DAILY 05/09 1000 AC 05/09 PO 0913 Methylprednisolone 0 .STK-MED ONE 05/09 0651 DC .ROUTE Methylprednisolone 0 .STK-MED ONE 05/08 220 DC .ROUTE Methylprednisolone 40 MG Q8 05/08 2200 AC 05/09 IV 05/12 1401 0654 Methylprednisolone 0 .STK-MED ONE 05/08 1342 DC .ROUTE Methylprednisolone 125 MG ONCE ONE 05/08 1330 DC 05/08 IV 05/08 1331 1345 Montelukast Sodium 10 MG AT BEDTIME 05/08 2200 AC PO Multivitamins 1 TAB DAILY 05/08 1722 AC 05/09 Therapeutic PO 0910 Omeprazole 40 MG DAILY AC 05/08 1722 AC 05/09 PO 0732 Tiotropium [place] 1 PUF DAILY 05/08 1722 AC 05/09 INH 0910 Review of Systems Comments 18 point review of systems was performed and reviewed. Please see pertinent positives and pertinent negatives in the HPI. Otherwise ROS is negative. Past History Travel History Traveled to [place] past 21 day No Medical History Neurological: NONE EENT: allergies, DRY EYES Cardiovascular: hypertension Respiratory: emphysema, SLEEP APNEA 02 DEPENDANT Gastrointestinal: GERD Hepatic: NONE Renal: NONE Musculoskeletal: rheumatoid arthritis Psychiatric: NONE Endocrine: NONE Surgical History Surgical History: non-contributory, cholecystectomy Family History Relations & Conditions If Any: grandmother (Angina). MOTHER (Aortic Valve replacement). FATHER (Hypertension). BROTHER (CHF). Psychosocial History Where Do You Live? Home Services at Home: None Smoking Status: Never Smoked ETOH Use: denies use Illicit Drug Use: denies illicit drug use Exam & Diagnostic Data Last 24 Hrs of Vital Signs/I&O Vital Signs Date Time Temp Pulse Resp B/P B/P Pulse O2 O2 Flow FiO2 Mean Ox Delivery Rate 05/09 1128 98.3 84 24 139/62 94 Nasal 2.0L Cannula 05/09 0913 86 127/65 05/09 0802 97.6 86 20 127/65 95 Nasal 2.0L Cannula 05/09 0801 97.6 86 20 127/65 95 Nasal 2.0L Cannula 05/09 0757 97.6 86 20 127/65 95 Nasal 2.0L Cannula 05/09 0634 97.5 87 20 122/78 95 Nasal 2.0L Cannula 05/08 2222 98.6 86 20 96 Nasal 2.0L Cannula 05/08 1913 Nasal 2.0L Cannula 05/08 1911 91 19 119/73 98 Room Air 05/08 1643 89 19 111/72 98 Room Air 05/08 1433 98.4 95 20 108/58 97 Nasal 2.0L Cannula 05/08 1424 97 Nasal 2.0L Cannula 05/08 1336 96 Nasal 2.0L Cannula 05/08 1148 96.8 110 20 113/79 96 Nasal 2.0L Cannula Intake & Output 05/09 1600 05/09 0800 05/09 0000 Intake Total 240 400 Output Total Balance 240 400 Intake, Oral 240 400 Physical Exam Other Physical Findings: Generally - Awake, alert s Head and neck - normocephalic, atraumatic, EOMI grossly intact Cardiovascular - S1, S2 Lungs - b/l wheezing/rhonchi Abdomen - Bowel sounds positive, soft, non-tender Extremities - without edema Last 48 Hrs of Labs/Ivan: Laboratory Tests 05/09/17 0644: Anion Gap 9, Estimated GFR > 60, BUN/Creatinine Ratio 20.0, Total Bilirubin 0.4, Direct Bilirubin 0.3, AST 91 H, ALT 145 H, Alkaline Phosphatase 125, Total Protein 6.6, Albumin 3.6, CBC w Diff NO MAN DIFF REQ, RBC 4.67, MCV 87.6, MCH 29.2, MCHC 33.3, RDW 14.1, MPV 8.7, Gran % 90.4 H, Lymphocytes % 8.1 L, Monocytes % 1.1 L, Eosinophils % 0, Basophils % 0.4, Absolute Granulocytes 13.0 H, Absolute Lymphocytes 1.2, Absolute Monocytes 0.2, Absolute Eosinophils 0, Absolute Basophils 0.1 05/08/17 1257: Anion Gap 11, Estimated GFR > 60, BUN/Creatinine Ratio 12.2, Glucose 123 H, Calcium 9.5, Total Bilirubin 0.8, AST 144 H, ALT 142 H, Alkaline Phosphatase 129 H, Troponin I < 0.01, Fei-U-Hupwfxzeozq Pept 19.5, Total Protein 7.1, Albumin 4.0, Globulin 3.1, Albumin/Globulin Ratio 1.3, PT 11.2, INR 1.07, APTT 30, D-Dimer High Sensitivty < 200, CBC w Diff NO MAN DIFF REQ, RBC 5.10, MCV 87.2, MCH 28.8, MCHC 33.0, RDW 14.2, MPV 8.5, Gran % 76.5 H, Lymphocytes % 12.8 L, Monocytes % 8.8, Eosinophils % 1.6, Basophils % 0.3, Absolute Granulocytes 11.7 H, Absolute Lymphocytes 1.9, Absolute Monocytes 1.3 H, Absolute Eosinophils 0.2, Absolute Basophils 0, Hepatitis A IgM Ab NONREACTIVE, Hep Bs Antigen NONREACTIVE, Hep B Core IgM Ab Conf NONREACTIVE, Hepatitis C Antibody NONREACTIVE Microbiology 05/08 1208 NASOPHARYN: Influenza Virus A & B Rapid Smear - COMP Assessment/Plan Impression/Plan: Impression 56 year old woman * Acute exacerbation of COPD probably secondary to a viral vs bacterila bronchitis * hx of arthritis * kris Plan -nocturnal CPAP @[id number] -solumedrol 40mg iv q8h today -zithromax course (had levaquin too) -trc/nebs -o2 as needed to keep spo2 >92% DVT prophylaxis at all times Consult Acknowledgment - Thank you for your consult request.
--- NOTE | 2017-05-09 14:26 | Patient Discharge Instructions ---
Discharge Instructions General Discharge Information You were seen/treated for: #COPD Exacerbation #Transaminitis #Rhematoid arthritis #Hypertension Special Instructions: - Please follow up with Dr. Lainez for your COPD evaluation within 1 week of discharge. - Please follow up with your primary care physician within 1-2 week of discharge. Inform your primary care physician of this admission to [facility]. - Continue your current medications per discharge instructions. - Please watch for these problems: Fever, Chills, Nausea, Vomiting, Shortness of Breath, Productive Cough, Chest Pain/Discomfort, Abdominal Pain, Active Bleeding or Bloody urine/stool. Diet Continue normal diet: Yes Activity Full Activity/No Limits: Yes Acute Coronary Syndrome Inclusion Criteria At DC or during hospital stay patient has or had the following: ACS DIAGNOSIS No Discharge Core Measures Meds if any: Prescribed or Continued at Discharge Meds if any: NOT Prescribed or Continued at Discharge Congestive Heart Failure Inclusion Criteria At DC or during hospital stay patient has or had the following: CHF DIAGNOSIS No Discharge Core Measures Meds if any: Prescribed or Continued at Discharge Meds if any: NOT Prescribed or Continued at Discharge Cerebrovascular accident Inclusion Criteria At DC or during hospital stay patient has or had the following: CVA/TIA Diagnosis No Discharge Core Measures Meds if any: Prescribed or Continued at Discharge Meds if any: NOT Prescribed or Continued at Discharge Venous thromboembolism Inclusion Criteria VTE Diagnosis No VTE Type NONE VTE Confirmed by (Test) NONE Discharge Core Measures - Per Current guidelines, there needs to be overlap - treatment for the first 5 days of Warfarin therapy. - If discharged on Warfarin prior to 5 days of - overlap therapy, the patient will need to be - assessed for post discharge needs including - *Post discharge parental anticoagulation - *Warfarin and/or parental anticoagulation education - *Follow up date to check INR post discharge At least 5 days overlap therapy as Inpatient No Meds if any: Prescribed or Continued at Discharge Note: Overlap Therapy is Warfarin and Anticoagulant Meds if any: NOT Prescribed or Continued at Discharge
--- NOTE | 2017-05-09 14:29 | Discharge Summary ---
Visit Information Visit Dates Admission Date: 05/08/17 Discharge Date: 05/15/17 Hospital Course Course Attending Physician: Jae Ragland MD Primary Care Physician: Marvin Welsh MD Hospital Course: Ms. Peters is a 56-year-old female past medical history of COPD on home O2, sleep apnea, and rheumatoid arthritis on weekly Enbrel injection presented to ER after being sent in by Dr. Lainez during outpatient office visit for evaluation of shortness of breath cough and wheezing. Upon admission, Afebrile (recent use of steroids) on 2LNC satting 97%. WBC 15.3 with mild left shift likely 2/2 recent steroid use. AST/ALT/ALKP 144/142/129. No acute findings on CXR. Patient was admitted to [facility] for the following managements #COPD Exacerbation Upon admission, patient's afebrile wth leukocytosis however without acute CXR findings would not warrant pneumonia. Patient was given TRC/Neb/Ventolin/ Symbicort BID/Spiriva/Singulair, and started on IV solumedrol, later bridged to oral Prednisne tapering. Patient was continued nocturnal CPAP @[id number]. Sputum cultures had grown yeast/mold but likely colonization while patient had no symptom of infection. Blood culture had been negative over hospital stay. Patient was discharged with a prednisone taper. #Transaminitis Upon admission, AST/ALT/ALKP 144/142/129, trended down to 91/145/125 on latest lab prior discharge. Patient's RUQ U/S showed hepatic steatosis but no acute issue. Patient's transaminitis was likely from medications until proven otherwise. Of note, patient had cholecystectomy from . Patient was advised to followup with PCP and her carrier operator after discharge. #Hx of Rhematoid arthritis, HTN Patient was continued on home meds including Aspirin 81, Lexapro, Omeprazole, Lasix 20mg, HCTZ, and Cozaar 25mg for her chronic medical conditions. #Morbid Obesity: BMI >40 Patient was advised on weight loss/dietary/excercise, and outpatient follow up. DVT PPX Lovenox+ALPS Heart Healthy Diet Full Code Allergies: Coded Allergies: doxycycline (Intermediate, HIVES/SOB 04/27/17) morphine (Intermediate, RASH, HIVES 04/27/17) amoxicillin (HIVES, WHEEZING 04/27/17) acetaminophen (From VICODIN) (Intermediate, NAUSEA 04/27/17) hydrocodone (From VICODIN) (Intermediate, NAUSEA 04/27/17) Pertinent Lab Results: SERVICE DATE: 05/08/17- EXAM TYPE: US - US-LIMITED ABDOMEN IMPRESSION: Visualization limited due to bowel gas. The pancreas is not evaluated. Increased hepatic echogenicity suggests hepatic steatosis. SERVICE DATE: 05/08/17-120 EXAM TYPE: RAD - XRY-CHEST XRAY, TWO VIEWS IMPRESSION: No acute cardiopulmonary findings. Disposition Summary Disposition Principal Diagnosis: #COPD Exacerbation #Transaminitis #Rhematoid arthritis #Hypertension Additional Diagnosis: As above Discharge Disposition: home or self care Discharge Instructions General Discharge Information Code Status: Full Code Patient's Diet: Regular diet Patient's Activity: As tolerated Follow-Up Instructions/Appts: - Please follow up with Dr. Lainez for your COPD evaluation within 1 week of discharge. - Please follow up with your primary care physician within 1-2 week of discharge. Inform your primary care physician of this admission to [facility]. - Continue your current medications per discharge instructions. - Please watch for these problems: Fever, Chills, Nausea, Vomiting, Shortness of Breath, Productive Cough, Chest Pain/Discomfort, Abdominal Pain, Active Bleeding or Bloody urine/stool. Medications at Discharge Discharge Medications: Continue taking these medications: Albuterol Sulfate (Albuterol Sulfate) 2.5 MG/3 ML (0.083 %) VIAL.NEB 1 Vial Inhale Solution EVERY 4 HOURS NEEDED as needed for SOB Comments: Last Taken: 05/15/17 Time: 1130 Albuterol Sulfate (Proair Hfa) 90 MCG HFA.AER.AD 2 Puff Inhale through mouth EVERY 4-6 HOURS NEEDED as needed for SOB Comments: NOT GIVEN Furosemide (Furosemide) 20 MG TABLET 1 Tablet ORAL DAILY Qty = 30 Comments: Last Taken: 05/15/17 Time: 930AM Montelukast Sodium (Montelukast Sodium) 10 MG TABLET 1 Tablet ORAL DAILY Qty = 30 Comments: Last Taken: 05/15/17 Time: 930AM Aspirin (Aspirin*) 81 MG TAB.CHEW 1 Tablet ORAL DAILY Comments: Last Taken: 05/15/17 Time: 930AM Budesonide/Formoterol Fumarate (Symbicort 160-4.5 Mcg Inhaler) 160 MCG-4.5 MCG/ ACTUATION HFA.AER.AD 2 Puff Inhale through mouth TWICE DAILY Qty = 1 Comments: Last Taken: 05/15/17 Time: 930AM Etanercept (Enbrel) 50 MG/ML (0.98 ML) SYRINGE 50 Inject into fatty tissue Once a Week Qty = 4 Comments: NOT GIVEN Escitalopram Oxalate (Escitalopram Oxalate) 20 MG TABLET 1 Tablet ORAL DAILY Qty = 30 Comments: Last Taken: 05/15/17 Time: 930AM Cyclosporine (Restasis) 0.05 % DROPERETTE 1 Drop In the eye TWICE DAILY Qty = 180 Comments: NOT GIVEN Tiotropium [place] (Spiriva Respimat) 2.5 MCG/ACTUATION MIST.INHAL 1 Capsule Inhale through mouth DAILY Qty = 4 Comments: Last Taken: 05/15/17 Time: 930AM Pantoprazole Sodium (Pantoprazole Sodium) 40 MG TABLET.DR 1 Tablet ORAL DAILY Comments: PRILOSEC GIVEN Last Taken: 05/15/17 Time: 530AM Multivitamin (Daily Multiple Vitamin) 1 EACH TABLET 1 Tablet ORAL DAILY Comments: Last Taken: 05/15/17 Time: 930AM Valsartan/Hydrochlorothiazide (Diovan Hct 80-12.5 MG Tablet) 80 MG-12.5 MG TABLET 1 Tablet ORAL DAILY Comments: CONVERTED TO [place] AND HCTZ IN HOSPITAL Start taking the following new medications: Prednisone (Prednisone) 10 MG TABLET 1 Tablet ORAL DAILY Qty = 26 No Refills Instructions: . Comments: Last Taken: 05/15/17 Time: 930AM 05/16-16: Pleas take 4 tablets, once daily 05/18-: Please take 3 tablets, once daily 05/21-: Please take 2 tablets, once daily 05/24-: Please take 1 tablet, once daily 05/27: STOP Copies To: Anitha HAYNES,Marvin Attending MD Review Statement Documenting Attending: Jae Ragland MD Other Findings: 56 y/o f with pmh sig for ch resp failure, COPD on home O2, sleep apnea, and rheumatoid arthritis on weekly Enbrel injection admitted with acute COPD exacerbation. Taper Steroids PO. Symbicort twice a day as recommended pulmonology. Continue TRC nebs, inhalers and the rest of the medications. Uses CPAP at night for KRIS. DVT prophylaxis: Lovenox. Anticipate dc soon. Patient clinically improved and medically stable for discharge. FOLLOW UP PCP in 3-5 days of discharge. Pulmoanry in 1-2 weeks of discharge.
[2017-05-09 15:28] VITALS: BP 140/80
[2017-05-09 22:08] VITALS: BP 188/84
[2017-05-10 06:50] VITALS: BP 150/88
--- NOTE | 2017-05-10 08:47 | PN- Housestaff ---
PhuFreida 05/10/17 0842: Subjective Follow-up For: #COPD Exacerbation #Transaminitis #Rhematoid arthritis Subjective: No overnight event. Patient felt about the same after treatment. No other complaint. Acknowledged use of CPAP overnight. CUrrently on 2L. Review of Systems Constitutional: Reports: see HPI. Objective Last 24 Hrs of Vital Signs/I&O Vital Signs Date Time Temp Pulse Resp B/P B/P Pulse O2 O2 Flow FiO2 Mean Ox Delivery Rate 05/10 0715 93 Nasal 2.0L Cannula 05/10 0650 96.8 79 20 150/88 95 Nasal 2.0L Cannula 05/10 0007 75 95 05/10 0000 95 Nasal 2.0L Cannula 05/09 2240 73 94 05/09 2208 98.1 93 20 188/84 95 Nasal Cannula 05/09 2048 94 Nasal 2.0L Cannula 05/09 1600 Nasal 2.0L Cannula 05/09 1553 95 Nasal 2.0L Cannula 05/09 1528 96.4 104 20 140/80 96 05/09 1339 Nasal 2.0L Cannula 05/09 1128 94 Nasal 2.0L Cannula 05/09 1128 98.3 84 24 139/62 94 Nasal 2.0L Cannula 05/09 0913 86 127/65 Intake & Output 05/10 1600 05/10 0800 05/10 0000 Intake Total 260 150 Output Total Balance 260 150 Intake, IV 20 Intake, Oral 240 150 Physical Exam General Appearance: Alert, Oriented X3, Cooperative, Mild Distress Cardiovascular: Regular Rate Lungs: Normal Air Movement, Bilateral expiratory wheeze, some improvement from yesterday. Abdomen: Soft, No Tenderness Neurological: Normal Speech Extremities: No Edema, Normal Pulses Current Medications: Current Medications Sig/Jarrell Start time Last Medication Dose Route Stop Time Status Admin Albuterol Sulfate 3 ML EVERY 4 HRS/AWAKE 05/09 1600 AC 05/10 INH 0810 Albuterol Sulfate 3 ML Q4P PRN 05/08 1730 AC 05/09 INH 1553 Albuterol Sulfate 2 PUF Q4-6 PRN PRN 05/08 1730 AC INH Aspirin 81 MG DAILY 05/08 1721 AC 05/09 PO 0909 Azithromycin 250 MG DAILY 05/09 1000 AC 05/09 PO 0910 Budesonide/ 2 PUF DAILY 05/08 1723 AC 05/09 Formoterol Fumarate INH 0910 Enoxaparin Sodium 40 MG DAILY 05/09 1000 AC 05/09 SC 0910 Escitalopram Oxalate 20 MG DAILY 05/08 1722 AC 05/09 PO 0910 Furosemide 20 MG DAILY 05/09 1000 AC 05/09 PO 0912 Furosemide 0 .STK-MED ONE 05/09 0916 DC PO Hydrochlorothiazide 12.5 MG DAILY 05/09 2245 AC PO Losartan Potassium 25 MG DAILY 05/09 1000 AC 05/09 PO 0913 Methylprednisolone 40 MG Q8 05/08 2200 AC 05/10 IV 05/12 1401 0543 Metronidazole 0 .STK-MED ONE 05/09 1348 DC PO Montelukast Sodium 10 MG DAILY 05/10 1000 AC PO Montelukast Sodium 10 MG AT BEDTIME 05/08 2200 DC PO Multivitamins 1 TAB DAILY 05/08 1722 AC 05/09 Therapeutic PO 0910 Omeprazole 40 MG DAILY AC 05/08 1722 AC 05/10 PO 0543 Tiotropium [place] 1 PUF DAILY 05/08 1722 AC 05/09 INH 0910 Assessment/Plan Assessment: Ms. Castellano is a 56-year-old female past medical history of COPD on home O2, sleep apnea, and rheumatoid arthritis on weekly Enbrel injection presented to ER after being sent in by Dr. Lainez during outpatient office visit for evaluation of shortness of breath cough and wheezing. Patient stated that her symptoms of discomfort, shortness of breath, feverish feelings started on 04/23/2017, and she presented to ER on 04/26, and received a prescription for prednisone and Levaquin which she has been taking prior to this admission, however, without significant improvement of symptoms. She was scheduled to see Dr. Lainez today and was found to have increased oxygen needs and significant wheezing/rhonchi. Patient was then sent to ER. Of note, patient reported productive cough with yellowish sputum that was worse at night and causing difficulty sleeping, and admitted that she had recent sick contact from her who was coughing as well. She also reported ongoing SOB since start of her symptoms, and required all day home O2 for the past 2 weeks. Patient denied any hemoptysis, lower extremity edema, nausea, vomiting, diarrhea, night sweats, or chills. Upon admission, Afebrile (recent use of steroids) on 2LNC satting 97%. WBC 15.3 with mild left shift likely 2/2 recent steroid use. AST/ALT/ALKP 144/142/129. No acute findings on CXR. Patient's current clinical picture resembled COPD exacerbation failing outpatient treatment. Patient's afebrile wth leukocytosis without acute CXR findings would not warrant pneumonia. Patient denied binge/daily alcohol use and had cholecystectomy remotely in . Her transaminitis was likely from medication use (patient denied MTX use recently) or other unclear etiology pending further evaluation. Patient was admitted to [facility] for the following managements #COPD Exacerbation - TRC/Neb/Ventolin/Symbicort/Spiriva/Singulair. - Would continue IV Solumedrol 40mg q8 + Zithromax 250mg x 4 days (received zithromax 500mg x 1 in ER), currently day 3. - Continue nocturnal CPAP @[id number] - Pending sputum/blood cultures #Transaminitis, AST/ALT/ALKP 144/142/129 -> 91/145/125 - RUQ U/S showed hepatic steatosis but no acute issue. - Patient's transaminitis was likely from medications until proven otherwise. - Patient had cholecystectomy from . - Would continue monitor. #Hx of Rhematoid arthritis, HTN - Continued home meds including Aspirin 81, Lexapro, Omeprazole, Lasix 20mg, HCTZ, and Cozaar 25mg for her chronic medical conditions. #Morbid Obesity: BMI >40 - Would consult for weight loss/dietary - Would advise to f/u outpatient DVT PPX Lovenox+ALPS Heart Healthy Diet Full Code Problem List: 1. COPD (chronic obstructive pulmonary disease) Pain Ratin Pain Location: NA Pain Goal: Remain pain free Pain Plan: see AP Tomorrow's Labs & Rationales: Jae De Luna 05/10/17 1315: Attending MD Review Statement Attending Statement Attending MD Statement: examined this patient, discuss w/resident/PA/PULMONOLOGY PHYSICIAN, agreed w/resident/PA/PULMONOLOGY PHYSICIAN, discussed with family, reviewed EMR data (avail), discussed with nursing, discussed with case mgmt, reviewed images, amended to note Attending Assessment/Plan: Patient seen/examined bedside. Patient with b/l wheezing, +use of accessory muscles, on oxygen supplementation is admitted for COPD exacerbation. Pulmoanry consulted and recommend iv steroids, cpap at night, bronchodilators, oxygen supplementation, resume home meds. gi/dvt prophylaxis full code.
--- NOTE | 2017-05-10 12:31 | PN- Pulmonary ---
Subjective HPI/Critical Care Issues: Patient seen and examined's morning. She appears to be doing somewhat better but still significant shortness of breath. Objective Current Medications: Current Medications Sig/Jarrell Start time Last Medication Dose Route Stop Time Status Admin Albuterol Sulfate 3 ML EVERY 4 HRS/AWAKE 05/09 1600 AC 05/10 INH 1212 Albuterol Sulfate 3 ML Q4P PRN 05/08 1730 AC 05/09 INH 1553 Albuterol Sulfate 2 PUF Q4-6 PRN PRN 05/08 1730 AC INH Aspirin 81 MG DAILY 05/08 1721 AC 05/10 PO 1000 Azithromycin 250 MG DAILY 05/09 1000 AC 05/10 PO 0959 Budesonide/ 2 PUF DAILY 05/08 1723 AC 05/10 Formoterol Fumarate INH 1119 Enoxaparin Sodium 40 MG DAILY 05/09 1000 AC 05/10 SC 0959 Escitalopram Oxalate 20 MG DAILY 05/08 1722 AC 05/10 PO 1000 Furosemide 20 MG DAILY 05/09 1000 AC 05/10 PO 1000 Hydrochlorothiazide 12.5 MG DAILY 05/09 2245 AC 05/10 PO 1000 Losartan Potassium 25 MG DAILY 05/09 1000 AC 05/10 PO 1000 Methylprednisolone 40 MG Q8 05/08 2200 AC 05/10 IV 05/12 1401 0543 Metronidazole 0 .STK-MED ONE 05/09 1348 DC PO Montelukast Sodium 10 MG DAILY 05/10 1000 AC 05/10 PO 0959 Montelukast Sodium 10 MG AT BEDTIME 05/08 2200 DC PO Multivitamins 1 TAB DAILY 05/08 1722 AC 05/10 Therapeutic PO 0959 Omeprazole 40 MG DAILY AC 05/08 1722 AC 05/10 PO 0543 Tiotropium [place] 1 PUF DAILY 05/08 1722 AC 05/10 INH 1120 Vital Signs & I&O Last 24 Hrs of Vitals and I&O: Vital Signs Date Time Temp Pulse Resp B/P B/P Pulse O2 O2 Flow FiO2 Mean Ox Delivery Rate 05/10 1000 79 20 150/88 05/10 0815 93 Nasal 2.0L Cannula 05/10 0800 95 Nasal 2.0L Cannula 05/10 0650 96.8 79 20 150/88 95 Nasal 2.0L Cannula 05/10 0007 75 95 05/10 0000 95 Nasal 2.0L Cannula 05/09 2240 73 94 05/09 2208 98.1 93 20 188/84 95 Nasal Cannula 05/09 2048 94 Nasal 2.0L Cannula 05/09 1600 Nasal 2.0L Cannula 05/09 1553 95 Nasal 2.0L Cannula 05/09 1528 96.4 104 20 140/80 96 05/09 1339 Nasal 2.0L Cannula Intake & Output 05/10 1600 05/10 0800 05/10 0000 Intake Total 260 150 Output Total Balance 260 150 Intake, IV 20 Intake, Oral 240 150 Exam Other Physical Findings: Generally - Awake, alert s Head and neck - normocephalic, atraumatic, EOMI grossly intact Cardiovascular - S1, S2 Lungs - b/l wheezing/rhonchi Abdomen - Bowel sounds positive, soft, non-tender Extremities - without edema Impression/Plan Impression/Plan Impression/Plan: Impression 56 year old woman * Acute exacerbation of COPD probably secondary to a viral vs bacterila bronchitis * hx of arthritis * doc Plan -nocturnal CPAP @[id number] -reduce solumedrol 40mg iv q12h -zithromax course (had levaquin too) -trc/nebs -o2 as needed to keep spo2 >92% DVT prophylaxis at all times
[2017-05-10 14:45] VITALS: BP 120/70
[2017-05-10 22:06] VITALS: BP 138/60
[2017-05-11 06:27] VITALS: BP 134/76
--- NOTE | 2017-05-11 09:27 | PN- Housestaff ---
Shaye HAYNES,Sunil 05/11/17926: Subjective Follow-up For: copd exacerbation Subjective: patient still complaining of dyspnea and mild cough some pleuritic pain Review of Systems Constitutional: Reports: see HPI. Objective Last 24 Hrs of Vital Signs/I&O Vital Signs Date Time Temp Pulse Resp B/P B/P Pulse O2 O2 Flow FiO2 Mean Ox Delivery Rate 05/11 1438 98.0 94 20 146/72 96 05/11 921 82 128/60 05/11 824 97 Nasal 2.0L Cannula 05/11 799 93 Nasal 2.0L Cannula 05/11 626 97.8 78 20 134/76 93 Nasal 2.5L Cannula 05/11 0000 Nasal 2.0L Cannula 05/10 220 99.2 94 20 138/60 95 Nasal 2.0L Cannula 05/10 1924 Nasal 2.0L Cannula 05/10 1630 91 Nasal 3.0L Cannula Intake & Output 05/11 1600 05/11 0800 05/11 0000 Intake Total 1000 200 Output Total Balance 1000 200 Intake, Oral 1000 200 Physical Exam General Appearance: Alert, Oriented X3, Cooperative, No Acute Distress Cardiovascular: Regular Rate, Normal S1, Normal S2, No Murmurs Lungs: severely restricted air movement, diffuse expiratory wheezing and rhonchi Abdomen: Normal Bowel Sounds, Soft, No Tenderness, No Masses Extremities: No Clubbing, No Cyanosis, No Edema, Normal Pulses Current Medications: Current Medications Sig/Jarrell Start time Last Medication Dose Route Stop Time Status Admin Albuterol Sulfate 3 ML EVERY 4 HRS/AWAKE 05/09 1600 AC 05/11 INH 1157 Albuterol Sulfate 3 ML Q4P PRN 05/08 1730 AC 05/09 INH 1553 Albuterol Sulfate 2 PUF Q4-6 PRN PRN 05/08 1730 AC INH Aspirin 81 MG DAILY 05/08 172 AC 05/11 PO 921 Azithromycin 250 MG DAILY 05/09 999 AC 05/11 PO 0922 Budesonide/ 2 PUF BID 05/11 2199 AC Formoterol Fumarate INH Budesonide/ 2 PUF DAILY 05/08 172 DC 05/11 Formoterol Fumarate INH 0920 Enoxaparin Sodium 40 MG DAILY 05/09 1000 AC 05/11 SC 0923 Escitalopram Oxalate 20 MG DAILY 05/08 172 AC 05/11 PO 0921 Furosemide 20 MG DAILY 05/09 1000 AC 05/11 PO 0922 Hydrochlorothiazide 12.5 MG DAILY 05/09 2245 AC 05/11 PO 0922 Losartan Potassium 25 MG DAILY 05/09 1000 AC 05/11 PO 0922 Methylprednisolone 40 MG Q12 05/10 2200 AC 05/11 IV 0922 Montelukast Sodium 10 MG DAILY 05/10 1000 AC 05/11 PO 0922 Multivitamins 1 TAB DAILY 05/08 1722 AC 05/11 Therapeutic PO 0922 Omeprazole 40 MG DAILY AC 05/08 1722 AC 05/11 PO 0622 Tiotropium [employer] 1 PUF DAILY 05/08 1722 AC 05/11 INH 0920 Last 24 Hrs of Lab/Ivan Results Last 24 Hrs of Labs/Mics: Microbiology 05/11 1257 LOWER RESP: Respiratory Culture - RES 05/11 1257 LOWER RESP: Gram Stain - RES Assessment/Plan Assessment: 56-year-old female past medical history of COPD on home O2, sleep apnea, and rheumatoid arthritis on weekly Enbrel injection presented to ER after being sent in by Dr. Lainez during outpatient office visit for evaluation of shortness of breath cough and wheezing. Patient stated that her symptoms of discomfort, shortness of breath, feverish feelings started on 04/23/2017, and she presented to ER on 04/26, and received a prescription for prednisone and Levaquin which she has been taking prior to this admission, however, without significant improvement of symptoms. She was scheduled to see Dr. Lainez today and was found to have increased oxygen needs and significant wheezing/rhonchi. Patient was then sent to ER. Of note, patient reported productive cough with yellowish sputum that was worse at night and causing difficulty sleeping, and admitted that she had recent sick contact from her who was coughing as well. She also reported ongoing SOB since start of her symptoms, and required all day home O2 for the past 2 weeks. Patient denied any hemoptysis, lower extremity edema, nausea, vomiting, diarrhea, night sweats, or chills. Upon admission, Afebrile (recent use of steroids) on 2LNC satting 97%. WBC 15.3 with mild left shift likely 2/2 recent steroid use. AST/ALT/ALKP 144/142/129. No acute findings on CXR. COPD exacerbation #COPD Exacerbation -failing outpatient treatment. -afebrile -negative CXR -TRC/Neb/Ventolin/Symbicort/Spiriva/Singulair. - Would continue IV Solumedrol 40mg q12 + Zithromax 250mg x 4 days completed - Continue nocturnal CPAP @[id number] - Pending sputum culture /blood culture negative #Transaminitis, AST/ALT/ALKP 144/142/129 -> 91/145/125 - RUQ U/S showed hepatic steatosis but no acute issue. - Patient's transaminitis was likely from medications until proven otherwise. - Patient had cholecystectomy from . - Would continue monitor. #Hx of Rhematoid arthritis, HTN - Continued home meds including Aspirin 81, Lexapro, Omeprazole, Lasix 20mg, HCTZ, and Cozaar 25mg for her chronic medical conditions. #Morbid Obesity: BMI >40 - Would consult for weight loss/dietary - Would advise to f/u outpatient DVT PPX Lovenox+ALPS Heart Healthy Diet Full Code Problem List: 1. COPD (chronic obstructive pulmonary disease) 2. Bronchitis Pain Ratin Pain Location: n/a Pain Goal: Pain 4 or less Pain Plan: prn Tomorrow's Labs & Rationales: bep/lfts Yonathan HAYNES,Marine 05/11/17 1407: Attending MD Review Statement Attending Statement Attending MD Statement: examined this patient, discuss w/resident/PA/SEMICONDUCTOR WAFERS SAW OPERATOR, agreed w/resident/PA/SEMICONDUCTOR WAFERS SAW OPERATOR, reviewed EMR data (avail), discussed with nursing, discussed with case mgmt, reviewed images, amended to note Attending Assessment/Plan: Patient seen and examined, still feeling pretty wheezy and short of breath. On oxygen and not back to baseline yet. Vital Signs Date Time Temp Pulse Resp B/P B/P Pulse O2 O2 Flow FiO2 Mean Ox Delivery Rate 05/11 921 82 128/60 05/11 0825 97 Nasal 2.0L Cannula 05/11 0800 93 Nasal 2.0L Cannula 05/11 0627 97.8 78 20 134/76 93 Nasal 2.5L Cannula 05/11 0000 Nasal 2.0L Cannula 05/10 2206 99.2 94 20 138/60 95 Nasal 2.0L Cannula 05/10 1924 Nasal 2.0L Cannula 05/10 1630 91 Nasal 3.0L Cannula 05/10 1445 98.2 98 20 120/70 95 on exam; aox3, nad. cv; s1,s2 rrr resp; + b/l exp wheeze. abd; soft, nt, bs+ no labs. A/P; 56 y/o f with pmh sig for ch resp failure, COPD on home O2, sleep apnea, and rheumatoid arthritis on weekly Enbrel injection admitted with acute CBD exacerbation. Continue the IV steroids. Please increase Symbicort to twice a day as recommended pulmonology. Continue TRC nebs, azithromycin, inhalers and the rest of the medications. DVT prophylaxis: Lovenox. Possible discharge in the next 1 -2 days on oral prednisone taper.
--- NOTE | 2017-05-11 10:47 | PN- Pulmonary ---
Subjective HPI/Critical Care Issues: Patient continues to feel short of breath and have minimally productive cough Objective Current Medications: Current Medications Sig/Jarrell Start time Last Medication Dose Route Stop Time Status Admin Albuterol Sulfate 3 ML EVERY 4 HRS/AWAKE 05/09 1600 AC 05/11 INH 0826 Albuterol Sulfate 3 ML Q4P PRN 05/08 1730 AC 05/09 INH 1553 Albuterol Sulfate 2 PUF Q4-6 PRN PRN 05/08 1730 AC INH Aspirin 81 MG DAILY 05/08 1721 AC 05/11 PO 0922 Azithromycin 250 MG DAILY 05/09 1000 AC 05/11 PO 0922 Budesonide/ 2 PUF DAILY 05/08 1723 AC 05/11 Formoterol Fumarate INH 0920 Enoxaparin Sodium 40 MG DAILY 05/09 1000 AC 05/11 SC 0923 Escitalopram Oxalate 20 MG DAILY 05/08 1722 AC 05/11 PO 0921 Furosemide 20 MG DAILY 05/09 1000 AC 05/11 PO 0922 Hydrochlorothiazide 12.5 MG DAILY 05/09 2245 AC 05/11 PO 0922 Losartan Potassium 25 MG DAILY 05/09 1000 AC 05/11 PO 0922 Methylprednisolone 40 MG Q12 05/10 2200 AC 05/11 IV 0922 Methylprednisolone 40 MG Q8 05/08 2200 DC 05/10 IV 05/12 1401 0543 Montelukast Sodium 10 MG DAILY 05/10 1000 AC 05/11 PO 0922 Multivitamins 1 TAB DAILY 05/08 1722 AC 05/11 Therapeutic PO 0922 Omeprazole 40 MG DAILY AC 05/08 1722 AC 05/11 PO 0622 Tiotropium [place] 1 PUF DAILY 05/08 1722 AC 05/11 INH 0920 Vital Signs & I&O Last 24 Hrs of Vitals and I&O: Vital Signs Date Time Temp Pulse Resp B/P B/P Pulse O2 O2 Flow FiO2 Mean Ox Delivery Rate 05/11 921 82 128/60 05/11 626 97.8 78 20 134/76 93 Nasal 2.5L Cannula 05/11 0000 Nasal 2.0L Cannula 05/10 2206 99.2 94 20 138/60 95 Nasal 2.0L Cannula 05/10 1924 Nasal 2.0L Cannula 05/10 1630 91 Nasal 3.0L Cannula 05/10 1445 98.2 98 20 120/70 95 Intake & Output 05/11 1600 02 0800 02 0000 Intake Total 200 Output Total Balance 200 Intake, Oral 200 Since saturation 2.5 L 93% exam for chest shows scattered expiratory wheezing cardiac exam shows regular S1 and S2 without murmurs Impression/Plan Impression/Plan Impression/Plan: 86-year-old admitted with exacerbation of COPD has persistent bronchospasm Recommendations: Increase Symbicort to twice a day continue IV steroids Taper FiO2 saturations allow obtain sputum C&S
[2017-05-11 14:38] VITALS: BP 146/72
[2017-05-11 22:40] VITALS: BP 132/56
[2017-05-12 06:40] VITALS: BP 140/80
--- NOTE | 2017-05-12 08:47 | PN- Housestaff ---
Jay HAYNES,Altagracia 05/12/17 0846: Subjective Follow-up For: COPD exacerbation Complaints: no complaints Subjective: Patient was seen and examined at bedside. No overnight events. She complains of shortness of breath on exertion. She is on 4 L of oxygen. She denies chest pain, chest pressure, nausea, abdominal pain, weakness, falls. Review of Systems Constitutional: Reports: no symptoms. Cardiovascular: Reports: no symptoms. Respiratory: Reports: no symptoms. Gastrointestinal: Reports: no symptoms. Genitourinary: Reports: no symptoms. Musculoskeletal: Reports: no symptoms. Objective Last 24 Hrs of Vital Signs/I&O Vital Signs Date Time Temp Pulse Resp B/P B/P Pulse O2 O2 Flow FiO2 Mean Ox Delivery Rate 05/12 1036 98 Nasal 2.0L Cannula 05/12 1008 88 136/78 05/12 0800 Nasal 2.0L Cannula 05/12 0640 97.8 72 24 140/80 93 Nasal 3.0L Cannula 05/12 0000 Nasal 2.0L Cannula 05/11 2240 97.9 72 20 132/56 97 Nasal 2.0L Cannula 05/11 2201 78 98 05/11 1758 96 Nasal 2.0L Cannula 05/11 1600 Nasal Cannula 05/11 1438 98.0 94 20 146/72 96 Intake & Output 05/12 1600 05/12 0800 05/12 0000 Intake Total 200 200 Output Total Balance 200 200 Intake, Oral 200 200 Patient 278 lb Weight Physical Exam General Appearance: Alert, Oriented X3, Cooperative, No Acute Distress Skin: No Rashes HEENT: PERRLA Cardiovascular: Normal S1, Normal S2, No Murmurs Lungs: bilateral crackles Abdomen: Soft, No Tenderness, No Hepatospenomegaly, No Masses Neurological: Strength at 5/5 X4 Ext, Normal Tone, Sensation Intact, Cranial Nerves 3-12 NL Extremities: No Edema Current Medications: Current Medications Sig/Jarrell Start time Last Medication Dose Route Stop Time Status Admin Albuterol Sulfate 3 ML EVERY 4 HRS/AWAKE 05/09 1600 AC 05/12 INH 1034 Albuterol Sulfate 3 ML Q4P PRN 05/08 1730 AC 05/09 INH 1553 Albuterol Sulfate 2 PUF Q4-6 PRN PRN 05/08 1730 AC INH Aspirin 81 MG DAILY 05/08 1721 AC 05/12 PO 1008 Azithromycin 250 MG DAILY 05/09 1000 AC 05/12 PO 1008 Budesonide/ 2 PUF BID 05/11 2200 AC 05/12 Formoterol Fumarate INH 1007 Budesonide/ 2 PUF DAILY 05/08 1723 DC 05/11 Formoterol Fumarate INH 0920 Enoxaparin Sodium 40 MG DAILY 05/09 1000 AC 05/12 SC 1008 Escitalopram Oxalate 20 MG DAILY 05/08 1722 AC 05/12 PO 1008 Furosemide 20 MG DAILY 05/09 1000 AC 05/12 PO 1008 Hydrochlorothiazide 12.5 MG DAILY 05/09 2245 AC 05/12 PO 1008 Losartan Potassium 25 MG DAILY 05/09 1000 AC 05/12 PO 1008 Methylprednisolone 40 MG Q12 05/10 2200 AC 05/12 IV 1009 Montelukast Sodium 10 MG DAILY 05/10 1000 AC 05/12 PO 1009 Multivitamins 1 TAB DAILY 05/08 1722 AC 05/12 Therapeutic PO 1008 Omeprazole 40 MG DAILY AC 05/08 172 AC 05/12 PO 0537 Tiotropium [place] 1 PUF DAILY 05/08 172 AC 05/12 INH 1009 Last 24 Hrs of Lab/Ivan Results Last 24 Hrs of Labs/Mics: Laboratory Tests 05/12/17 0725: Anion Gap 8, Estimated GFR > 60, BUN/Creatinine Ratio 22.5, Total Bilirubin 0.3, Direct Bilirubin 0.2, AST 22, ALT 71 H, Alkaline Phosphatase 74, Total Protein 6.5, Albumin 3.6 Assessment/Plan Assessment: 56-year-old female past medical history of COPD on home O2, sleep apnea, and rheumatoid arthritis on weekly Enbrel injection presented to ER after being sent in by Dr. Lainez during outpatient office visit for evaluation of shortness of breath cough and wheezing. #COPD Exacerbation -failing outpatient treatment. -afebrile -negative CXR -TRC/Neb/Ventolin/Symbicort/Spiriva/Singulair. - Would continue IV Solumedrol 40mg q12 + Zithromax 250mg x 4 days completed - Continue nocturnal CPAP @[id number] - Pending sputum culture /blood culture negative #Transaminitis, AST/ALT/ALKP 144/142/129 -> 91/145/125 - RUQ U/S showed hepatic steatosis but no acute issue. - Patient's transaminitis was likely from medications until proven otherwise. - Patient had cholecystectomy from . - Would continue monitor. #Hx of Rhematoid arthritis, HTN - Continued home meds including Aspirin 81, Lexapro, Omeprazole, Lasix 20mg, HCTZ, and Cozaar 25mg for her chronic medical conditions. #Morbid Obesity: BMI >40 - advise weight loss/dietary/excercise - Would advise to f/u outpatient DVT PPX Lovenox+ALPS Heart Healthy Diet Full Code Problem List: 1. COPD (chronic obstructive pulmonary disease) Pain Ratin Pain Location: none Pain Goal: Remain pain free Pain Plan: tylenol Tomorrow's Labs & Rationales: cbc,bep Yonathan HAYNES,Marine 05/12/17 1300: Attending MD Review Statement Attending Statement Attending MD Statement: examined this patient, discuss w/resident/PA/SEARCH ENGINE MARKETING SPECIALIST, agreed w/resident/PA/SEARCH ENGINE MARKETING SPECIALIST, reviewed EMR data (avail), discussed with nursing, discussed with case mgmt, amended to note Attending Assessment/Plan: Patient seen and examined, still feeling pretty wheezy and short of breath. On oxygen and not back to baseline yet. Vital Signs Date Time Temp Pulse Resp B/P B/P Pulse O2 O2 Flow FiO2 Mean Ox Delivery Rate 05/12 1036 98 Nasal 2.0L Cannula 05/12 1008 88 136/78 05/12 0800 Nasal 2.0L Cannula 05/12 0640 97.8 72 24 140/80 93 Nasal 3.0L Cannula 05/12 0000 Nasal 2.0L Cannula 05/11 2240 97.9 72 20 132/56 97 Nasal 2.0L Cannula 05/11 2201 78 98 05/11 1758 96 Nasal 2.0L Cannula 05/11 1600 Nasal Cannula 05/11 1438 98.0 94 20 146/72 96 on exam; aox3, nad. cv; s1,s2 rrr resp; + b/l exp wheeze. abd; soft, nt, bs+ Laboratory Tests 05/12 0725 Chemistry Sodium (137 - 145 mmol/L) 139 Potassium (3.5 - 5.1 mmol/L) 4.4 Chloride (98 - 107 mmol/L) 96 L Carbon Dioxide (22 - 30 mmol/L) 35 H Anion Gap (5 - 16) 8 BUN (7 - 17 mg/dL) 18 H Creatinine (0.5 - 1.0 mg/dL) 0.8 Estimated GFR (>60 ml/min) > 60 BUN/Creatinine Ratio (7 - 25 %) 22.5 Total Bilirubin (0.2 - 1.3 mg/dL) 0.3 Direct Bilirubin (< 0.4 mg/dL) 0.2 AST (14 - 36 U/L) 22 ALT (9 - 52 U/L) 71 H Alkaline Phosphatase (<127 U/L) 74 Total Protein (6.3 - 8.2 g/dL) 6.5 Albumin (3.5 - 5.0 g/dL) 3.6 56 y/o f with pmh sig for ch resp failure, COPD on home O2, sleep apnea, and rheumatoid arthritis on weekly Enbrel injection admitted with acute COPD exacerbation. Continue the IV steroids. Symbicort increased to twice a day as recommended pulmonology. Continue TRC nebs, azithromycin, inhalers and the rest of the medications. DVT prophylaxis: Lovenox. Possible discharge in the next 1-2 days on oral prednisone taper.
--- NOTE | 2017-05-12 10:42 | PN- Pulmonary ---
Subjective HPI/Critical Care Issues: Patient continues to feel short of breath with cough and wheezing Objective Current Medications: Current Medications Sig/Jarrell Start time Last Medication Dose Route Stop Time Status Admin Albuterol Sulfate 3 ML EVERY 4 HRS/AWAKE 05/09 1600 AC 05/12 INH 1034 Albuterol Sulfate 3 ML Q4P PRN 05/08 1730 AC 05/09 INH 1553 Albuterol Sulfate 2 PUF Q4-6 PRN PRN 05/08 1730 AC INH Aspirin 81 MG DAILY 05/08 1721 AC 05/12 PO 1008 Azithromycin 250 MG DAILY 05/09 1000 AC 05/12 PO 1008 Budesonide/ 2 PUF BID 05/11 2200 AC 05/12 Formoterol Fumarate INH 1007 Budesonide/ 2 PUF DAILY 05/08 1723 DC 05/11 Formoterol Fumarate INH 0920 Enoxaparin Sodium 40 MG DAILY 05/09 1000 AC 05/12 SC 1008 Escitalopram Oxalate 20 MG DAILY 05/08 1722 AC 05/12 PO 1008 Furosemide 20 MG DAILY 05/09 1000 AC 05/12 PO 1008 Hydrochlorothiazide 12.5 MG DAILY 05/09 2245 AC 05/12 PO 1008 Losartan Potassium 25 MG DAILY 05/09 1000 AC 05/12 PO 1008 Methylprednisolone 40 MG Q12 05/10 2200 AC 05/12 IV 1009 Montelukast Sodium 10 MG DAILY 05/10 1000 AC 05/12 PO 1009 Multivitamins 1 TAB DAILY 05/08 1722 AC 05/12 Therapeutic PO 1008 Omeprazole 40 MG DAILY AC 05/08 1722 AC 05/12 PO 0537 Tiotropium [place] 1 PUF DAILY 05/08 1722 AC 05/12 INH 1009 Vital Signs & I&O Last 24 Hrs of Vitals and I&O: Vital Signs Date Time Temp Pulse Resp B/P B/P Pulse O2 O2 Flow FiO2 Mean Ox Delivery Rate 05/12 1036 98 Nasal 2.0L Cannula 05/12 1008 88 136/78 05/12 0800 Nasal 2.0L Cannula 05/12 0640 97.8 72 24 140/80 93 Nasal 3.0L Cannula 05/12 0000 Nasal 2.0L Cannula 05/11 2240 97.9 72 20 132/56 97 Nasal 2.0L Cannula 05/11 2201 78 98 05/11 1758 96 Nasal 2.0L Cannula 05/11 1600 Nasal Cannula 05/11 1438 98.0 94 20 146/72 96 Intake & Output 05/12 1600 05/12 0800 05/12 0000 Intake Total 200 200 Output Total Balance 200 200 Intake, Oral 200 200 Patient 278 lb Weight Liter oxygen 98% saturation exam for chest shows scattered expiratory wheezes cardiac exam shows normal S1 and S2 without murmurs has evidence of purulence but growing mixed [place] Impression/Plan Impression/Plan Impression/Plan: 56-year-old admitted with exacerbation of COPD has persistent bronchospasm and cough Recommendations: Increase Symbicort to twice a day continue IV steroids Taper FiO2 saturations allow follow-up sputum C&S
[2017-05-12 15:26] VITALS: BP 158/84
[2017-05-12 22:47] VITALS: BP 132/76
[2017-05-13 07:20] VITALS: BP 132/80
--- NOTE | 2017-05-13 08:10 | PN- Pulmonary ---
Subjective HPI/Critical Care Issues: Patient continues to have shortness of breath but is slowly improving oxygen saturations are markedly improved Objective Current Medications: Current Medications Sig/Jarrell Start time Last Medication Dose Route Stop Time Status Admin Albuterol Sulfate 3 ML EVERY 4 HRS/AWAKE 05/09 1600 AC 05/13 INH 0805 Albuterol Sulfate 3 ML Q4P PRN 05/08 1730 AC 05/09 INH 1553 Albuterol Sulfate 2 PUF Q4-6 PRN PRN 05/08 1730 AC INH Aspirin 81 MG DAILY 05/08 1721 AC 05/12 PO 1008 Azithromycin 250 MG DAILY 05/09 1000 AC 05/12 PO 1008 Budesonide/ 2 PUF BID 05/11 2200 AC 05/12 Formoterol Fumarate INH 2046 Enoxaparin Sodium 40 MG DAILY 05/09 1000 AC 05/12 SC 1008 Escitalopram Oxalate 20 MG DAILY 05/08 1722 AC 05/12 PO 1008 Furosemide 20 MG DAILY 05/09 1000 AC 05/12 PO 1008 Hydrochlorothiazide 12.5 MG DAILY 05/09 2245 AC 05/12 PO 1008 Losartan Potassium 25 MG DAILY 05/09 1000 AC 05/12 PO 1008 Methylprednisolone 40 MG Q12 05/10 2200 AC 05/12 IV 2046 Montelukast Sodium 10 MG DAILY 05/10 1000 AC 05/12 PO 1009 Multivitamins 1 TAB DAILY 05/08 172 AC 05/12 Therapeutic PO 1008 Omeprazole 40 MG DAILY AC 05/08 1722 AC 05/13 PO 0533 Tiotropium [place] 1 PUF DAILY 05/08 1722 AC 05/12 INH 1009 Vital Signs & I&O Last 24 Hrs of Vitals and I&O: Vital Signs Date Time Temp Pulse Resp B/P B/P Pulse O2 O2 Flow FiO2 Mean Ox Delivery Rate 05/13 0808 97 Nasal 2.0L Cannula 05/13 07 97.6 86 20 132/80 96 Nasal 2.0L Cannula 05/13 0000 CPAP 05/12 2246 98.9 74 20 132/76 96 Nasal 2.0L Cannula 05/12 1655 98 Nasal 2.0L Cannula 05/12 1600 95 Nasal 2.0L Cannula 05/12 1526 98.4 84 20 158/84 90 05/12 1036 98 Nasal 2.0L Cannula 05/12 1008 88 136/78 Intake & Output 05/13 1600 05/13 0800 05/13 0000 Intake Total 120 1220 Output Total 1000 Balance 120 220 Intake, IV 20 Intake, Oral 120 1200 Number 0 Bowel Movements Output, Urine 1000 Since saturation 2 L 97% exam for chest shows faint expiratory wheezing cardiac exam shows normal S1 and S2 without murmurs Impression/Plan Impression/Plan Impression/Plan: 56-year-old admitted with exacerbation of COPD has persistent bronchospasm and cough after being symptomatic for several weeks. She is slowly improving Recommendations: Increase Symbicort to twice a day continue IV steroids Taper FiO2 saturations allow follow-up sputum C&S no further pulmonary suggestions
--- NOTE | 2017-05-13 08:29 | PN- Housestaff ---
[place]ida [place] 05/13/17 0829: Subjective Follow-up For: COPD exacerbation Subjective: No overnight event. Patient felt slightly improved however still endorsed some bronchospasm especially with ambulating. Currenlty breathing on 2LNC Review of Systems Constitutional: Reports: see HPI. Objective Last 24 Hrs of Vital Signs/I&O Vital Signs Date Time Temp Pulse Resp B/P B/P Pulse O2 O2 Flow FiO2 Mean Ox Delivery Rate 05/13 0808 97 Nasal 2.0L Cannula 05/13 0800 97 Nasal 2.0L Cannula 05/13 0720 97.6 86 20 132/80 96 Nasal 2.0L Cannula 05/13 0000 CPAP 05/12 2247 98.9 74 20 132/76 96 Nasal 2.0L Cannula 05/12 1655 98 Nasal 2.0L Cannula 05/12 1600 95 Nasal 2.0L Cannula 05/12 1526 98.4 84 20 158/84 90 05/12 1036 98 Nasal 2.0L Cannula 05/12 1008 88 136/78 Intake & Output 05/13 1600 05/13 0800 05/13 0000 Intake Total 120 1220 Output Total 1000 Balance 120 220 Intake, IV 20 Intake, Oral 120 1200 Number 0 Bowel Movements Output, Urine 1000 Physical Exam General Appearance: Alert, Oriented X3, Cooperative, No Acute Distress Lungs: Normal Air Movement, mild wheezing bilaterally and some rhonchi on center chest Abdomen: Normal Bowel Sounds, Soft, No Tenderness Neurological: Normal Speech Extremities: No Edema, Normal Pulses Assessment/Plan Assessment: 56-year-old female past medical history of COPD on home O2, sleep apnea, and rheumatoid arthritis on weekly Enbrel injection presented to ER after being sent in by Dr. Lainez during outpatient office visit for evaluation of shortness of breath cough and wheezing. #COPD Exacerbation -failing outpatient treatment. -afebrile -negative CXR -TRC/Neb/Ventolin/Symbicort BID/Spiriva/Singulair. - Would continue IV Solumedrol 40mg q12 - Continue nocturnal CPAP @[id number] - Pending sputum culture /blood culture negative #Transaminitis, AST/ALT/ALKP 144/142/129 -> 91/145/125 - RUQ U/S showed hepatic steatosis but no acute issue. - Patient's transaminitis was likely from medications until proven otherwise. - Patient had cholecystectomy from . - Would continue monitor. #Hx of Rhematoid arthritis, HTN - Continued home meds including Aspirin 81, Lexapro, Omeprazole, Lasix 20mg, HCTZ, and Cozaar 25mg for her chronic medical conditions. #Morbid Obesity: BMI >40 - advise weight loss/dietary/excercise - Would advise to f/u outpatient DVT PPX Lovenox+ALPS Heart Healthy Diet Full Code Problem List: 1. COPD (chronic obstructive pulmonary disease) Pain Ratin Pain Location: na Pain Goal: Remain pain free Pain Plan: SEE AP Tomorrow's Labs & Rationales: PIA VilchisJae velasquez 05/13/17 1243: Attending MD Review Statement Attending Statement Attending MD Statement: examined this patient, discuss w/resident/PA/FLOW NURSE, agreed w/resident/PA/FLOW NURSE, discussed with family, reviewed EMR data (avail), discussed with nursing, discussed with case mgmt, reviewed images, amended to note Attending Assessment/Plan: 56 y/o f with pmh sig for ch resp failure, COPD on home O2, sleep apnea, and rheumatoid arthritis on weekly Enbrel injection admitted with acute COPD exacerbation. Continue the IV steroids. Symbicort twice a day as recommended pulmonology. Continue TRC nebs, azithromycin x 5 days, inhalers and the rest of the medications. DVT prophylaxis: Lovenox. Anticipate dc as clincial condition improves. Anticipate in next 24-48 hrs.
[2017-05-13 10:11] LABS: ABSOLUTE BASOPHIL COUNT 0 /CUMM (0.0-0.2); ABSOLUTE EOSINOPHIL COUNT 0 /CUMM (0.0-0.7); ABSOLUTE GRANULOCYTE CT 10.9 /CUMM (1.4-6.5); ABSOLUTE LYMPH COUNT 2.4 /CUMM (1.2-3.4); ABSOLUTE MONOCYTE COUNT 0.8 /CUMM (0.10-0.60); BASOPHIL % 0.2 % (0.0-2.0); EOSINOPHIL % 0.3 % (0-5); MEAN CORPUSCULAR HGB 28.7 PG (27.0-31.0); MEAN CORPUSCULAR HGB CONC 32.3 G/DL (33.0-37.0); MEAN CORPUSCULAR VOLUME 88.9 FL (81.0-99.0); MEAN PLATELET VOLUME 9.6 FL (7.4-10.4); PLATELET COUNT 393 /CUMM (130-400); RBC DISTRIBUTION WIDTH 14.5 % (11.5-14.5); RED BLOOD CELL CT 4.84 /CUMM (4.20-5.40); WHITE BLOOD CELL COUNT 14.2 /CUMM (4.8-10.8)
[2017-05-13 14:08] VITALS: BP 140/80
[2017-05-13 22:09] VITALS: BP 144/82
[2017-05-14 06:10] VITALS: BP 142/82
--- NOTE | 2017-05-14 07:43 | PN- Housestaff ---
See Addendum Subjective Follow-up For: COPD Exacerbation Subjective: No overnight event. Patient felt slightly improved from yesterday, however still endorsed some bronchospasm/SOB especially with ambulating. Currenlty breathing on 2LNC. Review of Systems Constitutional: Reports: see HPI. Objective Last 24 Hrs of Vital Signs/I&O Vital Signs Date Time Temp Pulse Resp B/P B/P Pulse O2 O2 Flow FiO2 Mean Ox Delivery Rate 05/14 0823 96 Nasal 2.0L Cannula 05/14 0610 97.7 78 20 142/82 97 Nasal 2.0L Cannula 05/14 0010 83 95 05/14 0000 Nasal 2.0L Cannula 05/13 2238 84 96 05/13 2209 98.3 81 20 144/82 97 05/13 1615 93 Nasal 2.0L Cannula 05/13 1600 Nasal 2.0L Cannula 05/13 1408 98.0 94 20 140/80 96 05/13 0955 97.6 86 20 132/80 Intake & Output 05/14 1600 05/14 0800 05/14 0000 Intake Total 100 400 Output Total Balance 100 400 Intake, Oral 100 400 Physical Exam General Appearance: Alert, Oriented X3, Cooperative, No Acute Distress Cardiovascular: Regular Rate, Normal S1, Normal S2 Lungs: Normal Air Movement, no wheezing, some coarse breath sounds Abdomen: Normal Bowel Sounds, Soft, No Tenderness Neurological: Normal Speech Extremities: Normal Pulses Current Medications: Current Medications Sig/Jarrell Start time Last Medication Dose Route Stop Time Status Admin Albuterol Sulfate 3 ML EVERY 4 HRS/AWAKE 05/09 1600 AC 05/14 INH 0822 Albuterol Sulfate 3 ML Q4P PRN 05/08 1730 AC 05/09 INH 1553 Albuterol Sulfate 2 PUF Q4-6 PRN PRN 05/08 1730 AC INH Aspirin 81 MG DAILY 05/08 1721 AC 05/13 PO 0955 Azithromycin 250 MG DAILY 05/09 1000 DC 05/13 PO 0955 Budesonide/ 2 PUF BID 05/11 220 AC 05/13 Formoterol Fumarate INH 2143 Enoxaparin Sodium 40 MG DAILY 05/09 1000 AC 05/13 SC 0957 Escitalopram Oxalate 20 MG DAILY 05/08 1722 AC 05/13 PO 0955 Furosemide 20 MG DAILY 05/09 1000 AC 05/13 PO 0955 Guaifenesin 600 MG Q12 05/13 1630 AC 05/13 PO 2143 Hydrochlorothiazide 12.5 MG DAILY 05/09 2245 AC 05/13 PO 0955 Losartan Potassium 25 MG DAILY 05/09 1000 AC 05/13 PO 0955 Methylprednisolone 40 MG Q12 05/10 2200 AC 05/13 IV 2143 Montelukast Sodium 10 MG DAILY 05/10 1000 AC 05/13 PO 0955 Multivitamins 1 TAB DAILY 05/08 1722 AC 05/13 Therapeutic PO 0954 Omeprazole 40 MG DAILY AC 05/08 1722 AC 05/14 PO 0557 Tiotropium [place] 1 PUF DAILY 05/08 1722 AC 05/13 INH 0957 Assessment/Plan Assessment: 56-year-old female past medical history of COPD on home O2, sleep apnea, and rheumatoid arthritis on weekly Enbrel injection presented to ER after being sent in by Dr. Lainez during outpatient office visit for evaluation of shortness of breath cough and wheezing. #COPD Exacerbation -failing outpatient treatment. -afebrile -negative CXR -TRC/Neb/Ventolin/Symbicort BID/Spiriva/Singulair. - Would continue IV Solumedrol 40mg, then taper t 40mg Prednisne PO staring tomorrow. - Continued nocturnal CPAP @[id number] - Pending sputum culture /blood culture negative #Transaminitis, AST/ALT/ALKP 144/142/129 -> 91/145/125 - RUQ U/S showed hepatic steatosis but no acute issue. - Patient's transaminitis was likely from medications until proven otherwise. - Patient had cholecystectomy from . - Would continue monitor. #Hx of Rhematoid arthritis, HTN - Continued home meds including Aspirin 81, Lexapro, Omeprazole, Lasix 20mg, HCTZ, and Cozaar 25mg for her chronic medical conditions. #Morbid Obesity: BMI >40 - advise weight loss/dietary/excercise - Would advise to f/u outpatient DVT PPX Lovenox+ALPS Heart Healthy Diet Full Code Problem List: 1. COPD exacerbation Pain Ratin Pain Location: NA Pain Goal: Remain pain free Pain Plan: see AP Tomorrow's Labs & Rationales: NA
--- NOTE | 2017-05-14 08:25 | PN- Pulmonary ---
Subjective HPI/Critical Care Issues: Patient continues to slowly improve she appears/short of breath Objective Current Medications: Current Medications Sig/Jarrell Start time Last Medication Dose Route Stop Time Status Admin Albuterol Sulfate 3 ML EVERY 4 HRS/AWAKE 05/09 1600 AC 05/14 INH 0822 Albuterol Sulfate 3 ML Q4P PRN 05/08 1730 AC 05/09 INH 1553 Albuterol Sulfate 2 PUF Q4-6 PRN PRN 05/08 1730 AC INH Aspirin 81 MG DAILY 05/08 1721 AC 05/13 PO 0955 Azithromycin 250 MG DAILY 05/09 1000 DC 05/13 PO 0955 Budesonide/ 2 PUF BID 05/11 2200 AC 05/13 Formoterol Fumarate INH 2143 Enoxaparin Sodium 40 MG DAILY 05/09 1000 AC 05/13 SC 0957 Escitalopram Oxalate 20 MG DAILY 05/08 1722 AC 05/13 PO 0955 Furosemide 20 MG DAILY 05/09 1000 AC 05/13 PO 0955 Guaifenesin 600 MG Q12 05/13 1630 AC 05/13 PO 2143 Hydrochlorothiazide 12.5 MG DAILY 05/09 2245 AC 05/13 PO 0955 Losartan Potassium 25 MG DAILY 05/09 1000 AC 05/13 PO 0955 Methylprednisolone 40 MG Q12 05/10 2200 AC 05/13 IV 2143 Montelukast Sodium 10 MG DAILY 05/10 1000 AC 05/13 PO 0955 Multivitamins 1 TAB DAILY 05/08 1722 AC 05/13 Therapeutic PO 0954 Omeprazole 40 MG DAILY AC 05/08 1722 AC 05/14 PO 0557 Tiotropium [place] 1 PUF DAILY 05/08 1722 AC 05/13 INH 0957 Vital Signs & I&O Last 24 Hrs of Vitals and I&O: Vital Signs Date Time Temp Pulse Resp B/P B/P Pulse O2 O2 Flow FiO2 Mean Ox Delivery Rate 05/14 06 97.7 78 20 142/82 97 Nasal 2.0L Cannula 05/14 0010 83 95 05/14 0000 Nasal 2.0L Cannula 05/13 2238 84 96 05/13 2209 98.3 81 20 144/82 97 05/13 1615 93 Nasal 2.0L Cannula 05/13 1600 Nasal 2.0L Cannula 05/13 1408 98.0 94 20 140/80 96 05/13 0955 97.6 86 20 132/80 Intake & Output 02/13 1600 05/14 0800 05/14 0000 Intake Total 100 400 Output Total Balance 100 400 Intake, Oral 100 400 Since saturation 2 L 97% exam for chest shows faint expiratory wheezing there is good air entry cardiac exam shows regular S1 and S2 without murmurs Impression/Plan Impression/Plan Impression/Plan: 56-year-old admitted with exacerbation of COPD has persistent bronchospasm and cough after being symptomatic for several weeks. She is slowly improving and can begin oral prednisone later today significant a mold is uncertain. Would send out for identification Recommendations: Increase Symbicort to twice a day begin oral prednisone later today Taper FiO2 saturations allow ask microbiology to speciate mold
[2017-05-14 15:00] VITALS: BP 132/80
[2017-05-14 22:27] VITALS: BP 148/80
[2017-05-15 06:20] VITALS: BP 144/76
--- NOTE | 2017-05-15 07:21 | PN- Housestaff ---
[place] 05/15/17 0721: Subjective Follow-up For: COPD Exacerbation Subjective: No overnight event. Patient felt much improved and would like to go home today. offered no other complaint. Review of Systems Constitutional: Reports: see HPI. Objective Last 24 Hrs of Vital Signs/I&O Vital Signs Date Time Temp Pulse Resp B/P B/P Pulse O2 O2 Flow FiO2 Mean Ox Delivery Rate 05/15 0620 97.6 75 20 144/76 95 Nasal 3.0L Cannula 05/15 0040 71 95 05/15 0000 Nasal 2.0L Cannula 05/14 2227 97.6 82 20 148/80 97 Nasal Cannula 05/14 1950 93 Nasal 2.0L Cannula 05/14 1600 Nasal 2.0L Cannula 05/14 1556 95 Nasal 2.0L Cannula 05/14 1500 98.1 84 20 132/80 94 Nasal 2.0L Cannula 05/14 0924 90 148/70 05/14 0823 96 Nasal 2.0L Cannula Intake & Output 05/15 1600 05/15 0800 05/15 0000 Intake Total 300 200 Output Total Balance 300 200 Intake, Oral 300 200 Physical Exam General Appearance: Alert, Oriented X3, Cooperative, No Acute Distress Cardiovascular: Regular Rate Lungs: Normal Air Movement, No more wheezing. Abdomen: Normal Bowel Sounds, Soft, No Tenderness Neurological: Normal Speech Extremities: No Edema, Normal Pulses Current Medications: Current Medications Sig/Jarrell Start time Last Medication Dose Route Stop Time Status Admin Albuterol Sulfate 3 ML EVERY 4 HRS/AWAKE 05/09 1600 AC 05/14 INH 1948 Albuterol Sulfate 3 ML Q4P PRN 05/08 1730 AC 05/09 INH 1553 Albuterol Sulfate 2 PUF Q4-6 PRN PRN 05/08 1730 AC INH Aspirin 81 MG DAILY 05/08 1721 AC 05/14 PO 0924 Budesonide/ 2 PUF BID 05/11 2200 AC 05/14 Formoterol Fumarate INH 210 Enoxaparin Sodium 40 MG DAILY 05/09 1000 AC 05/14 SC 0919 Escitalopram Oxalate 20 MG DAILY 05/08 1722 AC 05/14 PO 0924 Furosemide 20 MG DAILY 05/09 1000 AC 05/14 PO 0924 Guaifenesin 600 MG Q12 05/13 1630 AC 05/14 PO 2107 Hydrochlorothiazide 12.5 MG DAILY 05/09 2245 AC 05/14 PO 0924 Losartan Potassium 25 MG DAILY 05/09 1000 AC 05/14 PO 0924 Methylprednisolone 40 MG Q12 05/10 2200 DC 05/14 IV 0924 Montelukast Sodium 10 MG DAILY 05/10 1000 AC 05/14 PO 0925 Multivitamins 1 TAB DAILY 05/08 1722 AC 05/14 Therapeutic PO 0925 Omeprazole 40 MG DAILY AC 05/08 1722 AC 05/15 PO 0538 Patient Medication 1 ED ONE ONE 05/14 1100 DC Teaching ED 05/14 1101 Prednisone 40 MG DAILY 05/15 1000 AC PO Tiotropium [place] 1 PUF DAILY 05/08 1722 AC 05/14 INH 0919 Assessment/Plan Assessment: 56-year-old female past medical history of COPD on home O2, sleep apnea, and rheumatoid arthritis on weekly Enbrel injection presented to ER after being sent in by Dr. Lainez during outpatient office visit for evaluation of shortness of breath cough and wheezing. #COPD Exacerbation -failing outpatient treatment. -afebrile -negative CXR -TRC/Neb/Ventolin/Symbicort BID/Spiriva/Singulair. - Switched to 40mg Prednisne PO staring tomorrow. - Continued nocturnal CPAP @[id number] - Pending sputum culture /blood culture negative #Transaminitis, AST/ALT/ALKP 144/142/129 -> 91/145/125 - RUQ U/S showed hepatic steatosis but no acute issue. - Patient's transaminitis was likely from medications until proven otherwise. - Patient had cholecystectomy from . - Would continue monitor. #Hx of Rhematoid arthritis, HTN - Continued home meds including Aspirin 81, Lexapro, Omeprazole, Lasix 20mg, HCTZ, and Cozaar 25mg for her chronic medical conditions. #Morbid Obesity: BMI >40 - advise weight loss/dietary/excercise - Would advise to f/u outpatient DVT PPX Lovenox+ALPS Heart Healthy Diet Full Code Problem List: 1. COPD (chronic obstructive pulmonary disease) Pain Ratin Pain Location: NA Pain Goal: Remain pain free Pain Plan: see AP Tomorrow's Labs & Rationales: Jae De Luna 05/15/17 1222: Attending MD Review Statement Attending Statement Attending MD Statement: examined this patient, discuss w/resident/PA/FILM DRYING MACHINE OPERATOR, agreed w/resident/PA/FILM DRYING MACHINE OPERATOR, discussed with family, reviewed EMR data (avail), discussed with nursing, discussed with case mgmt, reviewed images, amended to note Attending Assessment/Plan: 56 y/o f with pmh sig for ch resp failure, COPD on home O2, sleep apnea, and rheumatoid arthritis on weekly Enbrel injection admitted with acute COPD exacerbation. Taper Steroids PO. Symbicort twice a day as recommended pulmonology. Continue TRC nebs, inhalers and the rest of the medications. Uses CPAP at night for KRIS. DVT prophylaxis: Lovenox. Anticipate dc soon. Patient clinically improved and medically stable for discharge. FOLLOW UP PCP in 3-5 days of discharge. Pulmoanry in 1-2 weeks of discharge.
--- NOTE | 2017-05-15 08:15 | PN- Pulmonary ---
Subjective HPI/Critical Care Issues: Patient shortness of breath is markedly improved and feels she is able to go home Objective Current Medications: Current Medications Sig/Jarrell Start time Last Medication Dose Route Stop Time Status Admin Albuterol Sulfate 3 ML EVERY 4 HRS/AWAKE 05/09 1600 AC 05/14 INH 1948 Albuterol Sulfate 3 ML Q4P PRN 05/08 1730 AC 05/09 INH 1553 Albuterol Sulfate 2 PUF Q4-6 PRN PRN 05/08 1730 AC INH Aspirin 81 MG DAILY 05/08 1721 AC 05/14 PO 0924 Budesonide/ 2 PUF BID 05/11 2200 AC 05/14 Formoterol Fumarate INH 2108 Enoxaparin Sodium 40 MG DAILY 05/09 1000 AC 05/14 SC 0919 Escitalopram Oxalate 20 MG DAILY 05/08 1722 AC 05/14 PO 0924 Furosemide 20 MG DAILY 05/09 1000 AC 05/14 PO 0924 Guaifenesin 600 MG Q12 05/13 1630 AC 05/14 PO 2107 Hydrochlorothiazide 12.5 MG DAILY 05/09 2245 AC 05/14 PO 0924 Losartan Potassium 25 MG DAILY 05/09 1000 AC 05/14 PO 0924 Methylprednisolone 40 MG Q12 05/10 2200 DC 05/14 IV 0924 Montelukast Sodium 10 MG DAILY 05/10 1000 AC 05/14 PO 0925 Multivitamins 1 TAB DAILY 05/08 1722 AC 05/14 Therapeutic PO 0925 Omeprazole 40 MG DAILY AC 05/08 1722 AC 05/15 PO 0538 Patient Medication 1 ED ONE ONE 05/14 1100 DC Teaching ED 05/14 1101 Prednisone 40 MG DAILY 05/15 1000 AC PO Tiotropium [place] 1 PUF DAILY 05/08 1722 AC 05/14 INH 0919 Vital Signs & I&O Last 24 Hrs of Vitals and I&O: Vital Signs Date Time Temp Pulse Resp B/P B/P Pulse O2 O2 Flow FiO2 Mean Ox Delivery Rate 05/15 0620 97.6 75 20 144/76 95 Nasal 3.0L Cannula 05/15 0040 71 95 05/15 0000 Nasal 2.0L Cannula 05/14 2227 97.6 82 20 148/80 97 Nasal Cannula 05/14 1950 93 Nasal 2.0L Cannula 05/14 1600 Nasal 2.0L Cannula 05/14 1556 95 Nasal 2.0L Cannula 05/14 1500 98.1 84 20 132/80 94 Nasal 2.0L Cannula 05/14 0924 90 148/70 05/14 0823 96 Nasal 2.0L Cannula Intake & Output 05/15 1600 05/15 0800 05/15 0000 Intake Total 300 200 Output Total Balance 300 200 Intake, Oral 300 200 Oxygen saturation 3 L 95% exam for chest shows markedly diminished wheezing cardiac exam shows normal S1 and S2 without murmurs Impression/Plan Impression/Plan Impression/Plan: 56-year-old admitted with exacerbation of COPD has persistent bronchospasm and cough after being symptomatic for several weeks. She is slowly improving and can begin oral prednisone later today significant a mold is uncertain. Would send out for identification patient is clinically improved appears stable for discharge with follow-up next week with Dr. Lainez Recommendations: Taper FiO2 his saturations allow. Slow prednisone taper. Complete course of antibiotic. Follow-up next week with Dr. Lainez.
[2017-05-15] MEDS ORDERED: PREDNISONE10 M2 PO ×2 (09:21→11:35)
[2017-05-15 09:25] VITALS: BP 144/76
== END 2017-05-15 13:29 | DRG 191 ==
LOC: ERH 11:32 → 2NA 15:30 → ERHI 15:30 → ENRESERV 05-09 13:54 → ENTRNSPT 05-09 14:36 → 2NA 05-09 14:37 → EDTRNSPTSTS 05-09 14:55 → CMPTRNSPT 05-09 14:55 → EDTRNSPT 05-09 14:55 → 2NA 05-09 15:18 → ENPENDDIS 05-15 11:37 → ENTRNSPT 05-15 13:02 → EDTRNSPT 05-15 13:13 → EDTRNSPTSTS 05-15 13:13 → 2NA 05-15 13:29 → EDTRNSPT 05-15 13:40 → CMPTRNSPT 05-15 13:41
PROVIDERS: Emergency Medicine; Internal Medicine Hematology & Oncology; Student in an Organized Health Care Education/Training Program
DX: J43.9 Emphysema, unspecified (principal); Z68.42 Body mass index [BMI] 45.0-49.9, adult; Z99.81 Dependence on supplemental oxygen; E66.01 Morbid (severe) obesity due to excess calories; G47.33 Obstructive sleep apnea (adult) (pediatric); M06.9 Rheumatoid arthritis, unspecified; J40 Bronchitis, not specified as acute or chronic; R74.0 Nonspecific elevation of levels of transaminase and lactic acid dehydrogenase [LDH]
CPT/HCPCS: 2NASP; ERO; 36415; 71046; 82436; 87040; 87070; 87071; 87804; 87804-59; 93005; 93010; 96374; J0456; J1650; J2920; J2930; J3490